=== PATIENT | female | born 1940 | race Caucasian/White ===

== ENCOUNTER → 2017-11-06 09:00 | Outpatient (CLI) | payer MEDICARE, SELFPAY ==
--- NOTE | 2017-11-06 | DI.MRI.S_ITS ---
PROCEDURE: MR LUMBAR SPINE WO CON INDICATIONS: LUMBAR SPINE RADICULOPATHY TECHNIQUE: Noncontrast sagittal T1 spin echo and T2 fast echo, sagittal STIR, axial T1 and T2 fast spin echo through the lumbar spine. In cases with scoliosis, additional coronal T2 fast spin echo may be performed. COMPARISON: [facility], MR, L-SPINE WITHOUT CONTRAST, 05/25/2015, 10:39. [facility], CR, XR LUMBAR SPINE 2 OR 3 VIEWS, 10/25/2017, 16:08. FINDINGS: Image quality: Excellent. Alignment and Curvature: 5 lumbar type vertebral bodies are present by plain film. There is loss of normal lumbar lordosis. There is mild kyphosis at L1. Bone Marrow: Marrow is of normal overall signal. No acute vertebral body compression fractures. Patient is status post T11-L2 fusion, with paired posterior rods and pedicle screws at T11, T12, and L2. No change in moderate chronic L1 wedging. Mild reactive signal within the endplates adjacent to the L3-L4, L4-L5, and L5-S1 intervertebral discs is present. Spinal Cord: Conus medullaris terminates at the upper L1 level. Visualized cord demonstrates normal signal and size. Paraspinous Soft Tissues: No paravertebral masses. T12-L1: There is mild retropulsion of the superior L1 level, as before, causing mild canal stenosis. No foraminal stenosis. L1-L2: Disc desiccation and diffuse disc bulge. Mild canal stenosis. No foraminal stenosis. No change. L2-L3: Mild disc desiccation and mild diffuse disc bulge. Mild bilateral facet hypertrophy. Mild canal stenosis. Mild foraminal stenosis bilaterally. No change. L3-L4: Moderate disc desiccation and diffuse disc bulge. Mild disc height loss. Moderate facet hypertrophy bilaterally. Mild canal stenosis. Mild foraminal stenosis bilaterally. No change. L4-L5: Moderate disc desiccation and diffuse disc bulge. Bilateral facet hypertrophy and ligamentum hypertrophy. Mild canal stenosis. Mild foraminal stenosis bilaterally. No change. L5-S1: Moderate disc desiccation and diffuse disc bulge. Mild facet hypertrophy bilaterally. Mild canal stenosis. Mild foraminal stenosis bilaterally. No change. IMPRESSION: 1. Postsurgical sequelae. 2. No change in chronic L1 compression fracture with mild chronic retropulsion, causing mild canal stenosis at the superior L1 level. 3. Multilevel degenerative disc and facet disease, causing mild multilevel canal and foraminal stenoses. No evidence of neural impingement. Dictated by: Sagar Johnston M.D. on 11/06/2017 at 11:47 Approved by: Sagar Johnston M.D. on 11/06/2017 at 11:52
== END ==
PROVIDERS: Family Provider Internal Medicine; PCP Internal Medicine; Visit Provider Orthopaedic Surgery Orthopaedic Surgery of the Spine
DX: M51.16 Intervertebral disc disorders with radiculopathy, lumbar region (principal); M48.061 Spinal stenosis, lumbar region without neurogenic claudication
CPT/HCPCS: 72148

== ENCOUNTER → 2018-08-08 14:25 | Outpatient (CLI) | payer MEDICARE, SELFPAY ==
[2018-08-08 15:01] LABS: Add Manual Diff / Slide Review NO; Basophils Absolute Auto 100 /uL (0-100); Eosinophils Absolute Auto 300 /uL (0-450); Eosinophils Percent Auto 2.9 % (2-4); Hematocrit 37.5 % (36-46); Hemoglobin 12.6 g/dL (12.0-16.0); Lymphocytes Absolute Auto 3200 /uL (1100-4500); Mean Corpuscular HGB Conc 33.7 % (30-36); Mean Corpuscular Hemoglobin 32.2 PG (26-34); Mean Corpuscular Volume 95.6 fL (80-100); Monocytes Absolute Auto 700 /uL (0-900); Monocytes Percent Auto 7.9 % (3-14); Neutrophils Absolute Auto 4700 /uL (1500-7000); Neutrophils Percent Auto 52.2 % (50-75); Platelet Count 239 X10^3/uL (150-400); Red Blood Cell Count 3.93 X10^6/uL (4.0-5.2); Red Cell Distribution Width 12.9 % (11.6-14.8)
[2018-08-08 16:00] LABS: Alanine Aminotransferase 22 IU/L (9-52); Albumin 4.5 g/dL (3.5-5.0); Albumin Globulin Ratio 1.8 (1.0-2.8); Alkaline Phosphatase 63 U/L (38-126); Aspartate Aminotransferase 32 IU/L (14-36); BUN Creatinine Ratio 37.1 (6-22); Bilirubin Total 0.2 mg/dL (0.2-1.3); Blood Urea Nitrogen 26 mg/dL (7-17); Calcium 9.3 mg/dL (8.4-10.2); Carbon Dioxide 21 mmol/L (22-32); Chloride 105 mmol/L (98-107); Cholesterol 185 mg/dL (140-199); Estimated Glomerular Filt Rate > 60.0 mL/min (>60); Globulin 2.5 g/dL (1.7-4.1); Glucose 121 mg/dL (80-110); HDL Cholesterol 54 mg/dL (40-60); HEMOLYSIS 20 (0-50); LDL Cholesterol Calculated 61 mg/dL (<100); Potassium 3.9 mmol/L (3.4-5.1); Sodium 137 mmol/L (137-145); Triglycerides 348 mg/dL (35-150)
== END ==
PROVIDERS: Family Provider Internal Medicine; PCP Internal Medicine; Visit Provider Internal Medicine
DX: E78.5 Hyperlipidemia, unspecified (principal); Z78.0 Asymptomatic menopausal state
CPT/HCPCS: 36415; 80053; 80061; 85025

== ENCOUNTER → 2018-12-17 15:51 | Outpatient (CLI) | payer MEDICARE, OTHER, SELFPAY ==
[2018-12-17 16:42] LABS: Creatine Kinase 61 U/L (30-135)
[2018-12-17 16:52] LABS: Troponin I < 0.012 ng/mL (0.01-0.034)
== END ==
PROVIDERS: PCP Internal Medicine; Visit Provider Hospitalist
DX: R07.9 Chest pain, unspecified (principal)
CPT/HCPCS: 36415; 82550; 84484

== ENCOUNTER → 2019-01-27 09:48 | Outpatient (CLI) | payer MEDICARE, OTHER, SELFPAY ==
--- NOTE | 2019-01-27 10:56 | PM.TREADMILL ---
Cardiac Stress Test Report Referral & Results Date Patient Seen: 01/27/19 Requesting provider: Shannan Tse Indication: Chest symptoms Rest ECG: Unremarkable Procedure Note: Today following both written and verbal informed consent, the patient was exercised according to a standard Fernando protocol. The patient exercised for a total of or minutes 8 seconds achieving a maximum heart rate of approximately 160 (lots of motion artifact). Patient's maximum systolic blood pressure was 190. This was an estimated 7.0 MET's. There is a tremendous amount of motion artifact related to patient's gown that almost completely obscured ECG while patient was active. Upon cessation of activity there was no obvious ST-T segment change. There is still lots of variability in her ST segment baseline but no [id number] consistency suggesting any ischemic change No dysrhythmia identified although certainly given the amount of artifact it would be extraordinarily difficult to see any subtle dysrhythmia Functional aerobic impairment rated about-10% on the sedentary scale or 10% better than average Impression: No evidence of ischemia. Given the amount of artifact seen I am not as confident in this result as I have might be otherwise. Clinical correlation suggested Please note: Actual ECG tracings can be found in the PACS system.
== END ==
PROVIDERS: PCP Internal Medicine; Visit Provider Internal Medicine
DX: R07.9 Chest pain, unspecified (principal)
CPT/HCPCS: 93016; 93017; 93018

== ENCOUNTER → 2019-02-03 11:50 | Outpatient (CLI) | payer MEDICARE, OTHER, SELFPAY ==
--- NOTE | 2019-02-03 11:53 | DI.RAD.S_ITS ---
PROCEDURE: XR CHEST 2V INDICATIONS: Chest pain TECHNIQUE: 2 views of the chest were acquired. COMPARISON: [facility], , CHEST 2 VIEW, 10/12/2009, 14:46. FINDINGS: Surgical changes and devices: None. Lungs and pleura: Lungs are clear. No pleural effusions or pneumothorax. Mediastinum: Mediastinal contours are normal. Heart size is normal. Bones and chest wall: No suspicious bony abnormalities. Spine fixation hardware. Soft tissues appear unremarkable. IMPRESSION: No acute cardiopulmonary abnormality. Dictated by: Roel Arteaga M.D. on 02/03/2019 at 12:49 Approved by: Roel Arteaga M.D. on 02/03/2019 at 12:51
== END ==
PROVIDERS: PCP Internal Medicine; Visit Provider Internal Medicine
DX: R07.9 Chest pain, unspecified (principal)
CPT/HCPCS: 71046

== ENCOUNTER → 2019-03-12 12:38 | Outpatient (CLI) | payer MEDICARE, OTHER, SELFPAY ==
--- NOTE | 2019-03-12 | DI.US.S_ITS ---
ULTRASOUND OF RIGHT BREAST: 03/12/2019 CLINICAL: Patient returns today to evaluate a focal asymmetry in the right breast. [facility] of the right breast was performed on the areas of interest. Scott scale images of the real-time examination were reviewed. There is a 0.4 cm oval cyst in the right breast at 1 o'clock middle depth. This oval cyst displays internal echoes and posterior acoustic enhancement. This correlates with mammography findings. IMPRESSION: PROBABLY BENIGN The 0.4 cm oval cyst in the right breast is consistent with complicated cyst and is probably benign. A follow-up mammogram and an ultrasound in 6 months is recommended to demonstrate stability. This exam was interpreted at Station ID: [id number]. Electronically Signed By: Betty Grissom M.D. lk/:03/12/2019 13:55:44 letter sent: Followup Recommended Ultrasound BI-RADS: 3 Probably benign
--- NOTE | 2019-03-12 12:40 | DI.US.S_ITS ---
ULTRASOUND OF LEFT BREAST: 03/12/2019 Comparison is made to exam dated: 03/12/2019 [facility]. Ultrasound of the left breast was performed on the area of interest. Scott scale images of the real-time examination were reviewed. IMPRESSION: NEGATIVE There is no sonographic evidence of malignancy. There is no mammographic or sonographic abnormality seen in the left breast to correspond with the pain in the upper outer quadrant, however, clinical followup is recommended. A 1 year screening mammogram is recommended. This exam was interpreted at Station ID: [id number]. Electronically Signed By: Betty acosta/sharda:03/12/2019 13:56:26 letter sent: Clinical Evaluation Ultrasound BI-RADS: 1 Negative
--- NOTE | 2019-03-12 12:40 | DI.MG.S_ITS ---
BILATERAL DIGITAL DIAGNOSTIC MAMMOGRAM 3D/2D: 03/12/2019 CLINICAL: Left breast pain Baseline exam. No prior exams were available for comparison. The tissue of both breasts is predominantly fatty. There is a 0.3 cm oval focal asymmetry in the right breast at 1 o'clock middle depth. No other significant masses, calcifications, or other findings are seen in either breast. IMPRESSION: INCOMPLETE: NEEDS ADDITIONAL IMAGING EVALUATION The 0.3 cm oval focal asymmetry in the right breast is indeterminate. There is no mammographic abnormality seen in the left breast to correspond with the pain. A targeted ultrasound of the bilateral breasts is recommended and will be performed immediately following this exam. This exam was interpreted at Station ID: [id number]. NOTE: For mammograms, a report in lay terms will be sent to the patient. Approximately 15% of breast malignancies will not be visualized mammographically. In the management of a palpable breast mass, a negative mammogram must not discourage biopsy of a clinically suspicious lesion. Electronically Signed By: Betty Grissom M.D. lk/:03/12/2019 13:25:15 ACR BI-RADS Category 0: Incomplete [id number]
== END ==
PROVIDERS: PCP Internal Medicine; Visit Provider Internal Medicine
DX: R92.8 Other abnormal and inconclusive findings on diagnostic imaging of breast (principal); N64.4 Mastodynia; N60.01 Solitary cyst of right breast
CPT/HCPCS: 76642; 77066; G0279

== ENCOUNTER → 2019-03-27 15:43 | Outpatient (ROUT) | payer MEDICARE, OTHER, SELFPAY | PROVIDERS: PCP Internal Medicine; Visit Provider Podiatrist | DX: B35.1 Tinea unguium (principal) | CPT/HCPCS: 87102; 87220 ==

== ENCOUNTER → 2019-05-05 12:18 | Outpatient (CLI) | payer MEDICARE, OTHER, SELFPAY | PROVIDERS: PCP Internal Medicine; Visit Provider Nurse Practitioner | DX: N39.0 Urinary tract infection, site not specified (principal) | CPT/HCPCS: 87077; 87086; 87186 ==

== ENCOUNTER 2019-05-13 12:02 | Day surgery (SDC) | payer MEDICARE, OTHER, SELFPAY ==
[2019-05-08 15:48] VITALS: BMI 27.6
--- NOTE | 2019-05-13 | DI.MG.S_ITS ---
UNILATERAL RIGHT DIGITAL DIAGNOSTIC MAMMOGRAM: 05/13/2019 CLINICAL: Post wire localization. Right breast mass. Comparison is made to exams dated: 03/12/2019 ultrasound and 03/12/2019 mammogram - [facility]. The tissue of right breast is predominantly fatty. There is a localization wire in the appropriate position in the right breast at 1 o'clock middle depth. IMPRESSION: POST PROCEDURE MAMMOGRAM FOR MARKER PLACEMENT Successful wire localization This exam was interpreted at Station ID: [id number]. NOTE: For mammograms, a report in lay terms will be sent to the patient. Approximately 15% of breast malignancies will not be visualized mammographically. In the management of a palpable breast mass, a negative mammogram must not discourage biopsy of a clinically suspicious lesion. Electronically Signed By: Hudson he/:05/15/2019 15:23:24 ACR BI-RADS Category Post-procedure mammogram for marker placement
--- NOTE | 2019-05-13 | PATH_ITS ---
[facility] Accession Number: [id number] . 01 Material submitted: . breast - RIGHT BREAST MASS . 01 Clinical history: . SHORT STITCH SUPERIOR, LONG STITCH LATERAL . 01 Diagnosis: Right Breast 'Mass', Partial Mastectomy: Breast parenchyma with fibrocystic change including cystic apocrine metaplasia, focal usual ductal hyperplasia, focal columnar cell change, mild cystic duct dilatation, microcysts, and mild stromal fibrosis. Focal microcalcifications are present. Negative for atypia, carcinoma in situ and malignancy. [facility] 05/20/2019 0139 Local . 01 Comment: Biopsy site changes are not identified; however, sections surrounding the end of the localization wire (Blocks A6 through A9) are each examined with additional deeper H/E levels. The specimen is entirely submitted. . 01 Electronically signed: . Roberta Jack MD, Pathologist NPI- [id number] . 01 Gross description: . Received: In formalin, labeled right breast mass-short stitch superior, long stitch lateral. Specimen: Right partial mastectomy. Weight: 15 g. Measurement: Up to 1.5 cm anterior to posterior, 7.5 cm medial to lateral, and up to 3.2 cm superior to inferior. Skin Ellipse: Absent. Wire: A localization wire is present an enters the central inferoanterior aspect and ends within the specimen. Margins: Oriented by surgeon with short superior suture, long lateral suture, and inked as follows: posterior=black; anterior=purple; superior=blue; inferior=green; medial=yellow; lateral=orange. Sliced: Lateral to medial into 14 slices. Lesions: The localization wire ends within slices #6 and #7. The tissue surrounding the wire tip (0.3 x 0.2 cm) is de los santos-pink. No obvious nodules, masses, or lesions are identified. Biopsy Site: Present within slice #8. A metal clip is identified within the posterior margin. Distance to Margins: The area that contains the tip of the localization wire is 0.7 cm from the anterior margin, 0.8 cm from the posterior margin, 2.2 cm from the superior margin, 0.5 cm from the inferior margin, 2.5 cm from the lateral margin, and 3.7 cm from the medial resection margin. Other: The remaining cut surfaces consist of yellow lobulated unremarkable adipose tissue. Fixation Time: The specimen was placed in formalin on 05/13/2019, with no time given. The approximate total fixation time in formalin is calculated to be 36 hours 30 minutes. Sections: A1: Slice 1, lateral end of specimen, perpendicular. A2: Slice 2. A3: Slice 3. A4: Slice 4. A5: Slice 5, slice directly lateral to the tissue involving the localization wire. A6: Slice 6, slice involving the tip of the localization wire. A7: Slice 7, tissue involving the tip of the localization wire. A8: Slice 8, tissue directly medial to the tissue involving the tip of the localization wire, location of the biopsy marker within the posterior margin. A9: Slice 9. A10: Slice 10. A11: Slice 11. A12: Slice 12. A13: Slice 13. A14-A15: Slice 14, medial end of specimen, perpendicular. Specimen is entirely submitted. ([id number]) /[facility] 05/15/2019 1450 Local . 01 Pathologist provided ICD-10: N60.99 . 01 CPT . 078799 Performed at: [address] [address], [place], [place] [id number] MD Luis Eduardo Marquez MD Phone: [phone]
--- NOTE | 2019-05-13 | DI.US.S_ITS ---
ULTRASOUND GUIDED NEEDLE LOCALIZATION RIGHT BREAST: 05/13/2019 CLINICAL: Rt breast wire loc. 1:00 4 cmfn. Correlation is made to exams dated: 05/13/2019 mammogram, 03/12/2019 ultrasound, and 03/12/2019 mammogram - [facility]. A needle localization using ultrasound guidance was performed for the round lesion located in the right breast at 1 o'clock posterior depth. The skin was prepped in the usual manner. Local anesthetic was administered to the access site. A needle was inserted into the targeted area under ultrasound guidance. Post placement imaging demonstrates the tip traverses the targeted area. IMPRESSION: NEEDLE LOCALIZATION Needle localization for the lesion in the right breast at 1 o'clock posterior depth was successful. A specimen radiograph is recommended. This exam was interpreted at Station ID: [id number]. Hudosn he/:05/15/2019 15:13:43
--- NOTE | 2019-05-13 | DI.MG.S_ITS ---
SPECIMEN RIGHT BREAST: 05/13/2019 CLINICAL: Right breast specimen. Correlation is made to exams dated: 05/13/2019 localization, 05/13/2019 mammogram, and 03/12/2019 mammogram - [facility]. A surgical specimen was imaged for the lesion located in the right breast at 1 o'clock posterior depth. IMPRESSION: SPECIMEN The imaged specimen includes the distal portion of the localization wire. Waiting for pathology results. A final report will be issued when these become available. This exam was interpreted at Station ID: [id number]. Hudson he/:05/15/2019 15:21:33
[2019-05-13 12:20] VITALS: BP 149/74; PULSE 82; RESP 18; TEMP 36.3; O2SAT 97; BMI 26.3
[2019-05-13] MEDS: GABAPENTIN 300 MG CAPSULE PO (14:14)
[2019-05-13] MEDS: LACTATED RINGERS 1,000 ML 42 ML IV (14:58)
--- NOTE | 2019-05-13 15:12 | PM.HP.1 ---
History of Present Illness History of Present Illness Date Patient Seen: 05/13/19 Time Patient Seen: 15:15 Chief complaint: [id number] Narrative: 05/13-there have been no interval changes in her health since the H&P dated 04/09. She underwent needle wire localization today of right breast mass. Please refer the HP for further detail from March. 04/09/19 79-year-old woman with an incidentally discovered right breast cyst. She was having some left breast discomfort initially which led to workup mammogram and ultrasound which demonstrated no left breast abnormality and her left breast pain resolved after some orthopedic intervention of shoulder injection. However on the mammogram there was a 3mm indeterminate nodule that followup ultrasound demonstrates as a complex cyst likely benign. Patient is very concerned about this. She is insistent that it be removed as she is very concerned that it could potentially be cancer. I explained that it is likely benign and the recommendation that imaging be repeated in 6 months but she is insistent it be removed. Patient History Medical History Fusion of lumbar spine (Acute) Hyperlipidemia (Chronic) Rheumatoid arthritis (Chronic) Vitamin D deficiency (Chronic) Surgical History Anesthesia (Resolved) S/P total abdominal hysterectomy and bilateral salpingo-oophorectomy (~1991) Status post appendectomy (~1951) Status post cholecystectomy Status post tonsillectomy and adenoidectomy (~1963) Family & Social History Family History Brother Heart disease Social History: household members spouse Tobacco & Substance use: Smoking Status Never smoker alcohol intake current alcohol intake frequency holiday/special occasion Meds Home Medications and Allergies Home Medications Medication Instructions Recorded Confirmed Type conjugated estrogens 0.625 mg 0.625 mg PO QDAY #90 tab 08/13/18 05/05/19 Rx tablet simvastatin 20 mg tablet 20 mg PO BEDTIME #90 tab 08/13/18 05/05/19 Rx aspirin 81 mg tablet,delayed 81 mg PO DAILY 12/17/18 05/05/19 History release cholecalciferol (vitamin D3) 1,000 1,000 unit PO DAILY 12/17/18 05/05/19 History unit capsule lisinopril 5 mg tablet 5 mg PO DAILY #30 tab 12/17/18 05/05/19 Rx nitroglycerin 0.3 mg sublingual 0.3 mg SL Q5-15M PRN #10 tab 12/17/18 05/05/19 Rx tablet doxycycline hyclate 100 mg PO BID 05/08/19 05/08/19 History sulfamethoxazole 800 1 tab PO BID 7 Days #14 tab 05/10/19 Rx mg-trimethoprim 160 mg tablet Allergies Allergy/AdvReac Type Severity Reaction Status Date / Time Penicillins Allergy Unknown Verified 05/12/19 16:32 Sulfa (Sulfonamide AdvReac Intermediate Nausea/Vomi Verified 05/12/19 16:32 Antibiotics) ting trimethoprim AdvReac Intermediate Nausea/Vomi Verified 05/12/19 16:32 ting Review of Systems Review of Systems Narrative: A 10 point review of systems is negative except as noted in the HPI Exam Vital Signs (past 8 hours): - 05/13/19 12:20 Temperature 97.4 F L Pulse Rate 82 Respiratory Rate 18 Blood Pressure 149/74 H Pulse Oximetry 97 Oxygen Delivery Method Room Air Narrative Exam Narrative: General-no acute distress, well nourished HEENT-moist mucous membranes, no scleral icterus Neck-supple, no lymphadenopathy Chest- non labored respirations, clear to auscultation bilaterally Cardiac-regular rate no peripheral edema Abdomen-soft, nontender, non distended Extremities-warm, well perfused Neurological-alert and oriented, no focal deficits Assessment & Plan Assessment and plan (1) Abnormality of right breast on screening mammogram: Current visit: No Status: Acute Assessment & Plan narrative: 79-year-old woman with a right breast abnormality. Mammogram demonstrates a 3 mm indeterminate nodule which ultrasound characterizes is likely a complex cyst, likely benign. She wants excision for diagnostic purpose. We discussed risks of the operation including bleeding infection need for further operation preop questions have been answered and she is in agreement this plan.
[2019-05-13] MEDS: CLINDAMYCIN 900 MG/50 ML PIGGYBACK 50 MG IV (15:27)
--- NOTE | 2019-05-13 15:49 | SUR.OPER ---
Supine on padded OR bed, head on pillow, arms secured on padded arm boards at <90 degrees abduction, legs uncrossed, safety belt at thigh.
[2019-05-13] MEDS: BUPIVACAINE 0.25% (PF) VIAL 30 ML INJ (16:13)
[2019-05-13 16:24] VITALS: BP 151/64; PULSE 75; RESP 16; TEMP 36.6; O2SAT 98
--- NOTE | 2019-05-13 16:35 | PM.OP.1 ---
Operative Date/Time/Diagnoses Date of procedure: 05/13/19 Time of procedure: 16:35 Pre-op diagnosis: right breast radiographic abnormality Post-op diagnosis: same Procedure & Clinicians Procedure: Right needle-guided lumpectomy Same procedure as scheduled: Yes Indications: This is a 79-year-old female who was found have a 3 mm radiographic abnormality in the right breast most consistent with a cyst. She is insistent that she wants it surgically excise for diagnostic purpose. Surgeon: Jorge Luis Godwin Anesthesia Type: Local Operative Notes Findings: Most consistent with a right breast cyst. Radiographically the wire is within the excised tissue Specimen(s): other Prosthetic devices, grafts, tissues, transplants, or devices: Right lumpectomy Estimated Blood Loss (mL): 5 Procedure in detail: The patient underwent needle localized prior to the operation. They were brought to the operating room and placed supine on the table. Bilateral lower extremity compression devices were applied. There were prepped and draped in sterile fashion. Time-out was performed to ensure the correct patient procedure necessary equipment within the operating room. A curvilinear incision on the lateral aspect of the right areola was made and subcutaneous tissues were divided. The localizing wire was identified and then brought back within the incision. The end of the wire was within a right cystic appearing structure surrounded by normal breast parenchyma.. The mass was excised with the wire. Specimen was marked short stitch superior long stitch lateral. Imaging demonstrated that the specimen contained the wire and the associated clip. Subcutaneous tissues were reapproximated with 3 0 Vicryl sutures skin closed with Monocryl followed by application of Dermabond, 0.25% bupivacaine was infiltrated into the skin. Complications: none Post-operative Condition: stable Disposition: same day surgery
== END 2019-05-13 16:50 | disposition home or self-care (01) ==
PROVIDERS: PCP Internal Medicine; Visit Provider Surgery
PROC: (CPT 19301; principal; 2019-05-13 14:30)
DX: N60.91 Unspecified benign mammary dysplasia of right breast (principal); E78.5 Hyperlipidemia, unspecified; M06.9 Rheumatoid arthritis, unspecified; E55.9 Vitamin D deficiency, unspecified
CPT/HCPCS: 19301; 19285; 76098; 77065

== ENCOUNTER → 2019-06-10 14:40 | Outpatient (CLI) | payer MEDICARE, OTHER, SELFPAY ==
[2019-06-10 18:01] LABS: Appearance Urine UA SL CLOUDY; Bilirubin Urine UA NEGATIVE (NEGATIVE); Color Urine UA YELLOW; Glucose Urine UA NEGATIVE (Negative); Ketones Urine UA NEGATIVE (NEGATIVE); Leukocyte Esterase Urine UA NEGATIVE (NEGATIVE); Nitrite Urine UA NEGATIVE (Negative); Occult Blood Urine UA NEGATIVE (Negative); Protein Urine UA NEGATIVE (Negative); Urobilinogen Urine UA 0.2 E.U./dL (0.2)
[2019-06-10 18:20] LABS: Bacteria Urine Few (2-10); Culture Indicated Urine Cult Not Indicated; RBC Urine 0-1/HPF (0-5/HPF); Squamous Epithelial Cell Urine 10-30 /HPF (0-5/HPF); WBC Urine 0-1/HPF (0-5/HPF)
== END ==
PROVIDERS: PCP Internal Medicine; Referring Provider Internal Medicine; Visit Provider Internal Medicine
DX: R30.0 Dysuria (principal)
CPT/HCPCS: 81001

== ENCOUNTER → 2020-06-23 09:58 | Outpatient (CLI) | payer MEDICARE, OTHER, SELFPAY ==
[2020-06-23 11:45] LABS: Alanine Aminotransferase 23 IU/L (<35); Albumin 4.2 g/dL (3.5-5.0); Albumin Globulin Ratio 1.4 (1.0-2.8); Alkaline Phosphatase 61 U/L (38-126); Aspartate Aminotransferase 32 IU/L (14-36); BUN Creatinine Ratio 27.7 (6-22); Bilirubin Total 0.4 mg/dL (0.2-1.3); Blood Urea Nitrogen 18 mg/dL (7-17); Calcium 9.1 mg/dL (8.4-10.2); Carbon Dioxide 24 mmol/L (22-32); Chloride 109 mmol/L (98-107); Cholesterol 250 mg/dL (140-199); Estimated Glomerular Filt Rate > 60.0 mL/min (>60); Globulin 2.9 g/dL (1.7-4.1); Glucose 107 mg/dL (80-110); HDL Cholesterol 55 mg/dL (40-60); HEMOLYSIS < 15 (0-50); LDL Cholesterol Calculated 149 mg/dL (<100); Potassium 3.9 mmol/L (3.4-5.1); Sodium 138 mmol/L (137-145); Total Protein 7.1 g/dL (6.3-8.2); Triglycerides 231 mg/dL (35-150)
== END ==
PROVIDERS: PCP Internal Medicine; Referring Provider Internal Medicine; Visit Provider Internal Medicine
DX: E78.5 Hyperlipidemia, unspecified (principal); Z78.0 Asymptomatic menopausal state
CPT/HCPCS: 36415; 80053; 80061

== ENCOUNTER → 2020-08-23 14:07 | Outpatient (CLI) | payer MEDICARE, OTHER, SELFPAY | PROVIDERS: PCP Family Medicine; Referring Provider Family Medicine; Visit Provider Family Medicine | DX: Z78.0 Asymptomatic menopausal state (principal) | CPT/HCPCS: 77080 ==

== ENCOUNTER → 2020-10-15 15:14 | Outpatient (CLI) | payer MEDICARE, OTHER, SELFPAY ==
[2020-10-15 17:49] LABS: C-Reactive Protein Quant 1.4 mg/dL (<1.0); Uric Acid 4.1 mg/dL (2.5-6.2)
[2020-10-15 17:51] LABS: Rheumatoid Factor < 8.6 IU/mL (<12.0)
[2020-10-15 17:54] LABS: Erythrocyte Sedimentation Rate 21 MM/HR (0-20)
[2020-10-18 15:35] LABS: ANA Screen, IFA Negative (.)
== END ==
PROVIDERS: PCP Family Medicine; Referring Provider Orthopaedic Surgery; Visit Provider Orthopaedic Surgery
DX: M79.641 Pain in right hand (principal)
CPT/HCPCS: 36415; 84550; 85651; 86038; 86140; 86430

== ENCOUNTER → 2021-01-10 12:19 | Outpatient (CLI) | payer MEDICARE, OTHER, SELFPAY | PROVIDERS: PCP Family Medicine; Visit Provider Nurse Practitioner Family | DX: R30.9 Painful micturition, unspecified (principal) | CPT/HCPCS: 87086; 87210 ==

== ENCOUNTER → 2021-03-14 12:29 | Outpatient (CLI) | payer MEDICARE, OTHER, SELFPAY ==
--- NOTE | 2021-03-14 12:31 | DI.MRI.S_ITS ---
PROCEDURE: MR HEAD/BRAIN WO CON INDICATIONS: new severe headaches TECHNIQUE: Non-contrast axial T1 spin echo, axial T2 fast spin echo, sagittal and axial FLAIR, coronal T2 fast spin echo, axial gradient echo, axial diffusion and ADC through the brain. COMPARISON: None. FINDINGS: Image quality: Excellent. CSF spaces: Ventricles appear symmetric in size and shape. Basal cisterns are patent. No extra-axial fluid collections. Brain: No intracranial bleeds or mass effects. There is cerebral volume loss for age. There are periventricular and deep white matter chronic small vessel ischemic changes. Brainstem appears normal. Diffusion-weighted images show no acute ischemic insults. No chronic ischemic insults. Normal intravascular flow voids are present. Skull and face: Calvarial bone marrow is normal in signal. Orbits are normal. Sinuses: Sinuses and mastoids are clear. IMPRESSION: Unremarkable intracranial study for age, without an imaging explanation found for the patient's presenting history of headache. No acute intracranial process is seen. Note is made of age-appropriate brain parenchymal volume loss and chronic small vessel ischemic changes. No findings of acute or subacute infarction can be seen. Dictated by: Andre Mueller M.D. on 03/14/2021 at 12:39 Approved by: Andre Mueller M.D. on 03/14/2021 at 12:40
== END ==
PROVIDERS: PCP Family Medicine; Referring Provider Family Medicine; Visit Provider Family Medicine
DX: R51.9 Headache, unspecified (principal)
CPT/HCPCS: 70551

== ENCOUNTER → 2021-04-12 15:57 | Outpatient (CLI) | payer MEDICARE, OTHER, SELFPAY ==
--- NOTE | 2021-04-12 16:00 | DI.MG.S_ITS ---
BILATERAL DIGITAL SCREENING MAMMOGRAM 3D/2D WITH CAD: 04/12/2021 CLINICAL: Routine screening. Comparison is made to exams dated: 05/13/2019 mammogram, 03/12/2019 ultrasound, and 03/12/2019 mammogram - [facility]. The tissue of both breasts is heterogeneously dense. This may lower the sensitivity of mammography. Current study was also evaluated with a Computer Aided Detection (CAD) system. There is an oval equal density focal asymmetry with an indistinct and circumscribed margin in the right breast at 7 o'clock middle depth. No other significant masses, calcifications, or other findings are seen in either breast. IMPRESSION: INCOMPLETE: NEEDS ADDITIONAL IMAGING EVALUATION The oval equal density focal asymmetry in the right breast is indeterminate. Mediolateral and spot compression views as well as additional views with possible ultrasound are recommended. This exam was interpreted at Station ID: [id number]. NOTE: For mammograms, a report in lay terms will be sent to the patient. Approximately 15% of breast malignancies will not be visualized mammographically. In the management of a palpable breast mass, a negative mammogram must not discourage biopsy of a clinically suspicious lesion. Electronically Signed By: Luis Eduardo rojas/sharda:04/12/2021 16:56:11 letter sent: Additional Imaging Needed ACR BI-RADS Category 0: Incomplete [id number]
== END ==
PROVIDERS: PCP Family Medicine; Referring Provider Family Medicine; Visit Provider Family Medicine
DX: Z12.31 Encounter for screening mammogram for malignant neoplasm of breast (principal)
CPT/HCPCS: 77063; 77067

== ENCOUNTER → 2021-05-09 12:21 | Outpatient (CLI) | payer MEDICARE, OTHER, SELFPAY ==
--- NOTE | 2021-05-09 12:24 | DI.MG.S_ITS ---
UNILATERAL RIGHT DIGITAL DIAGNOSTIC MAMMOGRAM 3D/2D WITH ADDITIONAL VIEWS: 05/09/2021 CLINICAL: Additional evaluation requested from prior study. Comparison is made to exams dated: 04/12/2021 mammogram, 05/13/2019 specimen, and 05/13/2019 [facility]. The tissue of right breast is heterogeneously dense. This may lower the sensitivity of mammography. The benign oval equal density focal asymmetry with an indistinct and circumscribed margin in the right breast at 7 o'clock middle depth is no longer seen. This is not seen in additional views. No other significant masses or calcifications are seen in the breast. IMPRESSION: BENIGN There is no mammographic evidence of malignancy. A 1 year screening mammogram is recommended. This exam was interpreted at Station ID: [id number]. NOTE: For mammograms, a report in lay terms will be sent to the patient. Approximately 15% of breast malignancies will not be visualized mammographically. In the management of a palpable breast mass, a negative mammogram must not discourage biopsy of a clinically suspicious lesion. Electronically Signed By: Swapnil Caballero M.D., jr/sharda:05/09/2021 13:18:40 letter sent: Normal Exam ACR BI-RADS Category 2: Benign Finding(s) 3342F
== END ==
PROVIDERS: PCP Family Medicine; Referring Provider Family Medicine; Visit Provider Family Medicine
DX: R92.8 Other abnormal and inconclusive findings on diagnostic imaging of breast (principal)
CPT/HCPCS: 77065; G0279

== ENCOUNTER → 2021-05-19 11:27 | Outpatient (CLI) | payer MEDICARE, OTHER, SELFPAY ==
[2021-05-19 12:01] LABS: Estimated Glomerular Filt Rate > 60.0 mL/min (>60)
--- NOTE | 2021-05-19 12:12 | DI.CT.S_ITS ---
PROCEDURE: CT ANGIO HEAD INDICATIONS: LEFT PARIETAL HEADACHE TECHNIQUE: Precontrast 4.5 mm thick angled axial sections acquired from the foramen magnum to the vertex. After the administration of intravenous contrast, 1 mm thick sections acquired through the [place] of [place]. Postcontrast 4.5 mm thick sections then re-acquired from the foramen magnum to the vertex. 10 mm thick mnozavv-elviputkh-xdhgieznbd (MIP) reformats were acquired of the central intracranial vasculature. For radiation dose reduction, the following was used: automated exposure control, adjustment of mA and/or kV according to patient size. COMPARISON: None. FINDINGS: Image quality: Excellent. Anterior circulation: Intracranial internal carotid arteries are normal in size and flow. The flow within the paired anterior cerebral arteries is normal and symmetric. The flow within the middle cerebral arteries is normal and symmetric. The anterior communicating artery is seen. No aneurysms are seen. Posterior circulation: Visualized portions of the vertebral arteries demonstrate normal caliber, and join to form a normal appearing basilar artery. Flow within the posterior cerebral arteries is normal and symmetric. No aneurysms are seen. CSF spaces: Ventricles are normal in size and shape. Basal cisterns are patent. No extra-axial fluid collections. Brain: No midline shift. No intracranial bleeds or masses. Scott-white matter interface appears intact. Moderate cerebral and cerebellar volume loss with multifocal white matter chronic ischemic change noted. Skull and face: Calvarium and facial bones appear intact, without suspicious lesions. Sinuses: Visualized sinuses and mastoids are clear. IMPRESSION: Unremarkable CT angiogram of the brain without large vessel occlusion, aneurysm or vascular malformation. Mild atrophy and white matter chronic ischemic change without acute hemorrhage or mass effect. Approved by: Joshua Bradley M.D. on 05/19/2021 at 17:21
== END ==
PROVIDERS: PCP Family Medicine; Referring Provider Psychiatry & Neurology Neurology; Visit Provider Psychiatry & Neurology Neurology
DX: G44.89 Other headache syndrome (principal); Z13.9 Encounter for screening, unspecified
CPT/HCPCS: 36415; 70496; 82565; Q9967

== ENCOUNTER → 2021-08-23 12:54 | Outpatient (CLI) | payer MEDICARE, OTHER, SELFPAY ==
[2021-08-23 13:32] LABS: Add Manual Diff / Slide Review NO; Basophils Absolute Auto 100 /uL (0-100); Basophils Percent Auto 0.8 % (0-2); Eosinophils Absolute Auto 200 /uL (0-450); Eosinophils Percent Auto 2.9 % (2-4); Hematocrit 36.1 % (36-46); Hemoglobin 12.4 g/dL (12.0-16.0); Lymphocytes Absolute Auto 2900 /uL (1100-4500); Lymphocytes Percent Auto 37.8 % (25-40); Mean Corpuscular HGB Conc 34.4 % (30-36); Mean Corpuscular Hemoglobin 32.4 PG (26-34); Mean Corpuscular Volume 94.1 fL (80-100); Monocytes Absolute Auto 500 /uL (0-900); Monocytes Percent Auto 6.7 % (3-14); Neutrophils Absolute Auto 4000 /uL (1500-7000); Neutrophils Percent Auto 51.8 % (50-75); Platelet Count 242 X10^3/uL (150-400); Red Blood Cell Count 3.84 X10^6/uL (4.0-5.2); Red Cell Distribution Width 12.7 % (11.6-14.8); White Blood Cell Count 7.7 X10^3/uL (4.5-11.0)
[2021-08-23 14:20] LABS: Alanine Aminotransferase 17 IU/L (<35); Albumin 4.5 g/dL (3.5-5.0); Albumin Globulin Ratio 1.4 (1.0-2.8); Alkaline Phosphatase 55 U/L (38-126); Aspartate Aminotransferase 28 IU/L (14-36); Bilirubin Total 0.5 mg/dL (0.2-1.3); Blood Urea Nitrogen 20 mg/dL (7-17); Calcium 9.4 mg/dL (8.4-10.2); Carbon Dioxide 25 mmol/L (22-32); Chloride 107 mmol/L (98-107); Cholesterol 258 mg/dL (140-199); Estimated Glomerular Filt Rate > 60 mL/min (>60); Globulin 3.2 g/dL (1.7-4.1); Glucose 109 mg/dL (80-110); HDL Cholesterol 64 mg/dL (40-60); HEMOLYSIS < 15 (0-50); LDL Cholesterol Calculated 150 mg/dL (<100); Potassium 4.5 mmol/L (3.4-5.1); Sodium 141 mmol/L (137-145); Total Protein 7.7 g/dL (6.3-8.2); Triglycerides 222 mg/dL (35-150)
== END ==
PROVIDERS: PCP Family Medicine; Referring Provider Family Medicine; Visit Provider Family Medicine
DX: E78.2 Mixed hyperlipidemia (principal); M06.9 Rheumatoid arthritis, unspecified
CPT/HCPCS: 36415; 80053; 80061; 85025

== ENCOUNTER → 2021-10-27 10:30 | Outpatient (CLI) | payer MEDICARE, OTHER, SELFPAY ==
--- NOTE | 2021-10-27 | DI.MRI.S_ITS ---
PROCEDURE: MR LUMBAR SPINE WO CON INDICATIONS: SPINAL STENOSIS TECHNIQUE: Noncontrast sagittal T1 spin echo and T2 fast echo, sagittal STIR, and T2 fast spin echo through the lumbar spine. In cases with scoliosis, additional coronal T2 fast spin echo may be performed. COMPARISON: [facility], MR, MR LUMBAR SPINE WO CON, 11/06/2017, 9:20. FINDINGS: Image quality: Excellent. Alignment and Curvature: Posterior fixation from T11-L2 is redemonstrated. As before, a severe compression deformity is present at L1 with retropulsion of the vertebral body and focal kyphosis. Findings are similar in extent to the comparison lumbar spine MRI dated November 06, 2017. Bone Marrow: Marrow is of normal overall signal. No acute vertebral body compression fractures. Spinal Cord: Conus medullaris terminates at the L1 level. Visualized cord demonstrates normal signal and size. Paraspinous Soft Tissues: No paravertebral masses. T12-L1: Partial fusion of the disc interspace. No canal stenosis. Mild bilateral foraminal narrowing. Findings are unchanged from the prior study. L1-L2: Mild disc desiccation. Broad-based disc bulge. No canal stenosis. Mild bilateral neural foraminal narrowing. L2-L3: Mild disc bulge. Mild facet and ligamentum flavum hypertrophy. Mild bilateral foraminal stenosis. No canal stenosis. No interval change. L3-L4: Moderate disc desiccation and height loss. Broad-based disc bulge. Moderate facet and ligamentum flavum hypertrophy. No canal stenosis. Mild bilateral foraminal stenosis. No interval change. L4-L5: Mild disc desiccation and height loss. Mild facet and ligamentum flavum hypertrophy. No canal stenosis. Mild right and moderate left neural foraminal stenosis. There is a slight increase in the degree of left neural foraminal narrowing when compared with the 2018 study. L5-S1: No canal stenosis or foraminal narrowing. IMPRESSION: 1. Overall stable findings when compared with the prior MRI dated November 06, 2017. There is a slight increase in the degree of left L4-5 foraminal stenosis when compared with the prior study. No other interval change. Dictated by: Betty Grissom M.D. on 10/27/2021 at 12:05 Approved by: Betty Grissom M.D. on 10/27/2021 at 12:10
== END ==
PROVIDERS: PCP Family Medicine; Referring Provider Orthopaedic Surgery Orthopaedic Surgery of the Spine; Visit Provider Orthopaedic Surgery Orthopaedic Surgery of the Spine
DX: M48.061 Spinal stenosis, lumbar region without neurogenic claudication (principal)
CPT/HCPCS: 72148

== ENCOUNTER → 2022-05-09 12:56 | Outpatient (CLI) | payer MEDICARE, OTHER, SELFPAY ==
--- NOTE | 2022-05-09 12:59 | DI.MG.S_ITS ---
BILATERAL DIGITAL SCREENING MAMMOGRAM 3D/2D WITH CAD: 05/09/2022 CLINICAL: Routine screening. Comparison is made to exams dated: 04/12/2021 mammogram and 03/12/2019 mammogram - [facility]. Both breasts are heterogeneously dense, which may obscure small masses (category c / 51-75% glandular tissue). Current study was also evaluated with a Computer Aided Detection (CAD) system. No significant masses, calcifications, or other findings are seen in either breast. There has been no significant interval change. IMPRESSION: NEGATIVE There is no mammographic evidence of malignancy. A 1 year screening mammogram is recommended. Based on the Tyrer Cuzick model (a risk assessment model) the patient's lifetime risk is 3.1% and her 10 year risk is 0.0%. According to the ACR, ACS, and NCCN guidelines, an annual breast MRI exam along with mammogram is recommended if the patient's lifetime risk is 20% or greater. This exam was interpreted at Station ID: [id number]. NOTE: For mammograms, a report in lay terms will be sent to the patient. Approximately 15% of breast malignancies will not be visualized mammographically. In the management of a palpable breast mass, a negative mammogram must not discourage biopsy of a clinically suspicious lesion. Electronically Signed By: Tom herman/sharda:05/09/2022 17:47:53 letter sent: Normal Exam ACR BI-RADS Category 1: Negative 3341F
== END ==
PROVIDERS: PCP Family Medicine; Referring Provider Family Medicine; Visit Provider Family Medicine
DX: Z12.31 Encounter for screening mammogram for malignant neoplasm of breast (principal)
CPT/HCPCS: 77063; 77067

== ENCOUNTER → 2022-09-12 12:59 | Outpatient (CLI) | payer MEDICARE, OTHER, SELFPAY ==
[2022-09-12 13:37] LABS: Add Manual Diff / Slide Review NO; Basophils Absolute Auto 100 /uL (0-100); Basophils Percent Auto 0.7 % (0-2); Eosinophils Absolute Auto 200 /uL (0-450); Hematocrit 35.2 % (36-46); Lymphocytes Absolute Auto 3400 /uL (1100-4500); Lymphocytes Percent Auto 39.6 % (25-40); Mean Corpuscular HGB Conc 34.1 % (30-36); Mean Corpuscular Hemoglobin 32.8 PG (26-34); Mean Corpuscular Volume 96.1 fL (80-100); Monocytes Absolute Auto 600 /uL (0-900); Monocytes Percent Auto 7.5 % (3-14); Neutrophils Absolute Auto 4300 /uL (1500-7000); Neutrophils Percent Auto 50.2 % (50-75); Platelet Count 235 X10^3/uL (150-400); Red Blood Cell Count 3.66 X10^6/uL (4.0-5.2); Red Cell Distribution Width 12.6 % (11.6-14.8); White Blood Cell Count 8.5 X10^3/uL (4.5-11.0)
[2022-09-12 14:11] LABS: Alanine Aminotransferase 22 IU/L (<35); Albumin 4.2 g/dL (3.5-5.0); Albumin Globulin Ratio 1.4 (1.0-2.8); Alkaline Phosphatase 61 U/L (38-126); Aspartate Aminotransferase 28 IU/L (14-36); BUN Creatinine Ratio 30.9 (6-22); Bilirubin Total 0.5 mg/dL (0.2-1.3); Blood Urea Nitrogen 21 mg/dL (7-17); Carbon Dioxide 26 mmol/L (22-32); Chloride 104 mmol/L (98-107); Cholesterol 170 mg/dL (140-199); Estimated Glomerular Filt Rate > 60 mL/min (>60); Glucose 104 mg/dL (80-110); HDL Cholesterol 69 mg/dL (40-60); HEMOLYSIS < 15 (0-50); LDL Cholesterol Calculated 70 mg/dL (<100); Potassium 3.8 mmol/L (3.4-5.1); Sodium 137 mmol/L (137-145); Total Protein 7.2 g/dL (6.3-8.2); Triglycerides 155 mg/dL (35-150)
[2022-09-12 15:08] LABS: Creatinine Urine Random 211.4 mg/dL
[2022-09-12 15:12] LABS: Microalbumi Creatinin Ratio Ur 5.6 ug/mg CR (<30); Microalbumin Urine Random 1.2 mg/dL (0-1.6)
== END ==
PROVIDERS: PCP Family Medicine; Referring Provider Family Medicine; Visit Provider Family Medicine
DX: E78.2 Mixed hyperlipidemia (principal); I10 Essential (primary) hypertension; M06.9 Rheumatoid arthritis, unspecified; E55.9 Vitamin D deficiency, unspecified
CPT/HCPCS: 36415; 80053; 80061; 82043; 82306; 82570; 85025

== ENCOUNTER 2022-10-19 15:56 | Outpatient (RCR) | payer MEDICARE, OTHER, SELFPAY ==
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
--- NOTE | 2022-10-19 19:22 | PT.OPPOC ---
Physical, Occupational & Speech Therapy At [facility] Current Diagnoses Pain in left shoulder (10/19/22) Cervicalgia (10/19/22) Visit Care Team Role Provider Type Nilo Mendoza MD Attending Provider Physician Family Provider Primary Care Provider Referring Provider Specialty: Family Practice Address: [address] [place] [address], [facility] Email: [email or web address] Plan Of Care PT-OP-T Assessment and Plan Start: 10/12/22 17:57 Freq: Status: Active Protocol: Document 10/19/22 16:10 [facility] (Rec: 10/19/22 19:22 [facility] [id number]) Physical Therapy Assessment Rehab Potential Rehabilitation Potential Fair Evaluation Complexity Number of Personal Factors/Comorbidities 3 or More Number of Body Systems Impaired 4 or More Clinical Presentation at Evaluation Unstable Impairments Impairments Activity Tolerance,Functional Activities,Functional Mobility ,Pain,Posture,ROM,Soft Tissue Mobility,Strength Goals strength Short Term Goal (STG) Pt will be indep w/HEP STG Duration 11/19 Visual Manager Goal (LTG) pt will score 5/5 for all LUE MMT w/o inc pain. LTG Duration 01/11 pain Short Term Goal (STG) Pt will report pain will not be constant in L shoulder and UE STG Duration 11/19 Visual Manager Goal (LTG) Pt will report no inc in shoudler pain w/AROM of L shoulder in order to dec pain w/typical ADLs LTG Duration 01/11 Assessment Summary Assessment Pt has complicated presentation w/L breast pain that radiates into my lymph nodes and down LUE whcih pt notes pain as diffuse to LUE, but stops at wrist. Pain is worse when she is resting and better when she moves. She has no specific onset and was neg for all neural testing. Pt had pain in L shoulder area w/ LUE ROM consistant w/potential tendonopathy, but the LUE pain and breast pain was more concerning despite neg mammogram in Apr. Presentation is not typical as she does not have tenderness at ribs post, lat or ant and only tenderness at rib 4 costocondral junction. She would benefit from further testing and MD was called. Plan to check DTR and spurling to assess any other concerns. Physical Therapy Plan Frequency and Duration Frequency of Treatment 1-2x/wk Duration of treatment (weeks) 12 Plan of Care Start Date 10/19/22 Plan of Care End Date 01/11/23 Therapeutic Interventions Therapeutic Interventions Gait Training,Home Exercise Program,Joint Mobilizations, Manual Therapy,Neuromuscular Re-education,Patient/Caregiver Education,Self-Care/Home Management,Soft Tissue Mobilization,Taping, Therapeutic Activities, Therapeutic Exercises Next Visit Focus/Plan Next Note Type Treatment Note Next Visit Plan DTR testing, Spurling & Traction testing, try GH mobs, give gentle AAROM exercises, await further discussion from MD Plan of Care Dates Plan of Care Start Date 10/19/22 Plan of Care End Date 01/11/23 Electronically Signed by: Jeannine Amezquita, PT 10/19/22 4432 If you are in agreement with this Plan of Care, please return a signed and dated copy. I have reviewed this Plan of Care and certify that the skilled therapy services above are required to meet the patient?s needs. Physician Signature Date Printed Name and Credentials Clinical Instructor Signature Printed Name and Credentials
--- NOTE | 2022-11-15 15:03 | PT-OP ANOTE ---
Pt called re: difficulty scheduling and message left encouraging WL and let pt know that PT did contact provider's office re: concerns re: breast pain. Pt encouraged to call back to discuss further as needed
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
== END 2023-01-08 16:04 | disposition home or self-care (01) ==
LOC: PHYS 15:56
PROVIDERS: Family Provider Family Medicine; PCP Family Medicine; Referring Provider Family Medicine; Visit Provider Family Medicine
DX: M25.512 Pain in left shoulder (principal); M54.2 Cervicalgia
CPT/HCPCS: 97163; 97535

== ENCOUNTER → 2022-11-28 15:55 | Outpatient (CLI) | payer MEDICARE, OTHER, SELFPAY ==
--- NOTE | 2022-11-28 15:56 | DI.RAD.S_ITS ---
PROCEDURE: XR LUMBAR SPINE MIN 4V INDICATIONS: low back pain TECHNIQUE: 5 views of the lumbar spine were acquired, including bilateral oblique views. COMPARISON: [facility], CR, XR LUMBAR SPINE 2 OR 3 VIEWS, 10/18/2021, 13:43. FINDINGS: Bones: 5 nonrib-bearing vertebrae are present. There is normal bony alignment. There is moderate chronic wedging of L1, as before. No acute appearing vertebral body compression fractures. No suspicious bony lesions. Multilevel disc space narrowing and endplate osteophyte formation, as well as facet hypertrophy. Posterior fusion hardware at T11-L2 is present. Soft tissues: Overlying bowel gas pattern is normal. No suspicious soft tissue calcifications. IMPRESSION: 1. Postsurgical sequelae. 2. Multilevel degenerative disc and facet disease. 3. No acute fracture. No osseous lesion. If symptoms and/or clinical suspicion for pathology persist, further assessment with repeat, or advanced imaging (e.g., CT, MRI, or bone scan) may be helpful for further assessment. Dictated by: Sagar Johnston M.D. on 11/29/2022 at 13:11 Approved by: Sagar Johnston M.D. on 11/29/2022 at 13:12
--- NOTE | 2022-11-28 15:56 | DI.RAD.S_ITS ---
PROCEDURE: XR CERVICAL SPINE 4V OR 5V INDICATIONS: Neck/left shoulder pain TECHNIQUE: 5 views of the cervical spine acquired. COMPARISON: None. FINDINGS: Bones: No fractures or dislocations to the C6 level. Oblique images demonstrate no bony foraminal stenoses. Multilevel disc space narrowing and endplate osteophyte formation, as well as facet hypertrophy. Soft tissues: No prevertebral soft tissue swelling. IMPRESSION: Multilevel degenerative disc and facet disease. No acute fracture. No osseous lesion. If symptoms and/or clinical suspicion for pathology persist, further assessment with repeat, or advanced imaging (e.g., CT, MRI, or bone scan) may be helpful for further assessment. Dictated by: Sagar Johnston M.D. on 11/29/2022 at 13:10 Approved by: Sagar Johnston M.D. on 11/29/2022 at 13:11
== END ==
PROVIDERS: Family Provider Family Medicine; PCP Family Medicine; Referring Provider Anesthesiology; Visit Provider Anesthesiology
DX: M47.812 Spondylosis without myelopathy or radiculopathy, cervical region (principal); M50.30 Other cervical disc degeneration, unspecified cervical region; M51.16 Intervertebral disc disorders with radiculopathy, lumbar region; M47.26 Other spondylosis with radiculopathy, lumbar region; M54.9 Dorsalgia, unspecified; M25.512 Pain in left shoulder; M75.22 Bicipital tendinitis, left shoulder; M53.3 Sacrococcygeal disorders, not elsewhere classified; M70.61 Trochanteric bursitis, right hip; M70.62 Trochanteric bursitis, left hip; G89.29 Other chronic pain; Z98.1 Arthrodesis status
CPT/HCPCS: 72050; 72110; 99214

== ENCOUNTER → 2022-12-05 15:43 | Outpatient (CLI) | payer MEDICARE, OTHER, SELFPAY ==
--- NOTE | 2022-12-05 15:45 | DI.MRI.S_ITS ---
PROCEDURE: MR LUMBAR SPINE WO CON INDICATIONS: LBP with radiculopathy s/p fall, h/o T11-L2 fusion TECHNIQUE: Noncontrast sagittal T1 spin echo and T2 fast echo, sagittal STIR, and T2 fast spin echo through the lumbar spine. In cases with scoliosis, additional coronal T2 fast spin echo may be performed. COMPARISON: [facility], MR, MR LUMBAR SPINE WO CON, 10/27/2021, 10:38. FINDINGS: Image quality: Excellent. Alignment and Curvature: There is normal bony alignment. Bone Marrow: Wedge-shaped L1 compression fracture with small retropulsed fracture fragment and associated posterolateral fusion T11 through L2 with posterior lissette and screw instrumentation is again noted, stable from the prior exam. Incidental sacral perineural cysts Spinal Cord: Conus medullaris terminates at the L1 level. Visualized cord demonstrates normal signal and size. Paraspinous Soft Tissues: No paravertebral masses. T12-L1: Interbody and posterolateral fusion with retropulsed old fracture fragment results in mild central stenosis. Moderate bilateral foraminal stenosis L1-L2: Disc space narrowing with mild circumferential disc bulge. Mild central stenosis present. Moderate bilateral foraminal stenosis. L2-L3: Disc height is preserved. No central or foraminal stenosis. L3-L4: Disc space narrowing with asymmetric left disc bulge effaces the left lateral recess, increased from the prior. Mild central stenosis present. Moderate bilateral foraminal stenosis greater on the left. L4-L5: Disc space narrowing and degenerative endplate changes present. Hypertrophic facet joints. No central stenosis. Moderate left and mild right foraminal stenosis. L5-S1: Disc height is preserved. No central stenosis. Moderate bilateral foraminal stenosis. IMPRESSION: Multilevel degenerative disc disease and arthropathy results in varying degrees of central and foraminal stenosis including effacement of the left lateral recess at L3-4 with moderate bilateral foraminal stenosis. Old healed L1 compression fracture with instrumented posterolateral fusion, stable from prior exam. Approved by: Joshua Bradley M.D. on 12/06/2022 at 14:37
== END ==
PROVIDERS: Family Provider Family Medicine; PCP Family Medicine; Referring Provider Anesthesiology; Visit Provider Anesthesiology
DX: M51.16 Intervertebral disc disorders with radiculopathy, lumbar region (principal); M47.26 Other spondylosis with radiculopathy, lumbar region; M48.061 Spinal stenosis, lumbar region without neurogenic claudication; M48.56XS Collapsed vertebra, not elsewhere classified, lumbar region, sequela of fracture; M54.9 Dorsalgia, unspecified; Z98.1 Arthrodesis status
CPT/HCPCS: 72148

== ENCOUNTER 2022-12-20 14:01 | Outpatient (CLI) | payer MEDICARE, OTHER, SELFPAY ==
--- NOTE | 2022-12-20 14:02 | DI.RAD.S_ITS ---
PROCEDURE: PAIN L/S TRANSFORAMINAL INJECT INDICATIONS: RADICULOPATHY COMPARISON: [facility], MR, MR LUMBAR SPINE WO CON, 12/05/2022, 15:53. [facility], CR, XR LUMBAR SPINE MIN 4V, 11/28/2022, 16:24. FINDINGS: Fluoroscopic spot filming was performed to verify placement of a spinal needle at the L3-L4 level, as labeled on the films. Appropriate location of the needle tip was confirmed by injection of iodinated contrast. IMPRESSION: Intraprocedural examination within normal limits. Dictated by: Andre Mueller M.D. on 12/20/2022 at 17:35 Approved by: Andre Mueller M.D. on 12/20/2022 at 17:36
[2022-12-20 14:05] VITALS: BP 162/70; PULSE 85; RESP 18; TEMP 36.4; O2SAT 96
--- NOTE | 2022-12-20 14:07 | PC.NURSE ---
Patient declined IV insertion or sedation.
--- NOTE | 2022-12-20 14:15 | PC.NURSE ---
Refusing IV/Refusing sedation/refusing numbing medication Patient refusing to have IV saline lock placed for pain procedure today. Patient stating to Dr. Rodriguez that she does not want numbing medication for the procedure today. Patient did not want this RN to go through post procedure instructions with her in depth stating yeah, yeah, I got it all before while checking in patient to pre-procedure today.
[2022-12-20 14:27] VITALS: BP 177/74; PULSE 79; RESP 19; O2SAT 96
[2022-12-20] MEDS: DEXAMETHASONE 10 MG/ML VIAL INJ (14:29)
[2022-12-20] MEDS: IOPAMIDOL 15 ML VIAL 3 ML INJ (14:29)
[2022-12-20 14:32] VITALS: BP 157/71; PULSE 80; RESP 17; O2SAT 99
[2022-12-20 14:35] VITALS: BP 159/69; PULSE 77; RESP 15; O2SAT 99
--- NOTE | 2022-12-20 16:37 | P.PCN_ITS ---
Date/Time/Diagnoses Date of procedure: 12/20/22 Time of procedure: 14:30 Procedure Notes Physician: Papito Rodriguez Total Fluoroscopy time (seconds): 18 Total sedation minutes: 0 Procedure in detail & Post-procedure care: Left L3-4 Transforaminal Epidural Steroid Injection Indications: Daija is presenting for treatment of lumbar radiculopathy with low back and leg pain. Preoperative diagnosis: Lumbar radiculopathy Postoperative diagnosis: Same Focused Examination: Ax3 Mood and affect are normal Vital Signs: VSS Consent: Following review of allergies and potential side effects/complications, including, but not necessarily limited to, infection, allergic reaction, local tissue breakdown, stroke, temporary or permanent nerve injury, paralysis, and possible , the patient indicated that they understood and agreed to procee d.? An informed consent document was signed by the patient, witnessed by a nurse and placed in the patient's chart.? Additionally, other treatment options including medications and physical therapy were reviewed with the patient. All questions were answered. Site was then marked. Anesthesia: None, patient declines IV sedation as well as local anesthetic Position: Prone Monitoring: NIBP, Pulse oximetry, 3 lead EKG Needle used: 22G 5 inch spinal needle Contrast: Isovue 300M Injectate: 10 mg Dexamethasone mixed with normal saline 2 mL Technique: The skin was prepped with chloraprep and draped in a sterile fashion. Time out was performed as per protocol. Oxygen applied via NC. Skin and subcutaneous structures of the needle entry site were identified with fluoroscopy. Under fluoroscopic guidance, using an ipsilateral oblique view,?a 22 gauge 5 inch needle was advanced to the base of the L3?pedicle.? The needle was advanced to the superio-posterior aspect of the neural foramen under lateral view.? Oblique and AP views were rechecked. No paresthesias noted by the patient during needle placement. In AP view and utilizing real-time digital subtraction fluoroscopy, 2 ml contrast was slowly injected. Epidural spread was observed without evidence for intravascular nor intrathecal uptake. Contrast spread was seen craniocaudally. The above injectate was then administered, and the needle was subsequently withdrawn. Band-Aids applied to injection sites. EBL: less than 1 ml Complications: None Post Procedure: Patient was taken to the recovery and monitored. The patient was provided a Pain Log to continue to record the patient's response to the target- specific procedure prior to the patient's follow-up visit with the referring physician. Patient was stable upon discharge. Detailed post procedure instructions were provided. Patient was asked to call in the event of worsening pain, fever, weakness, numbness or bladder or bowel incontinence.
== END 2022-12-20 14:40 | disposition home or self-care (01) ==
LOC: RAD 14:02
PROVIDERS: Family Provider Family Medicine; PCP Family Medicine; Referring Provider Anesthesiology; Visit Provider Anesthesiology
DX: M54.16 Radiculopathy, lumbar region (principal)
CPT/HCPCS: 64483; J1100

== ENCOUNTER → 2023-01-02 16:16 | Outpatient (CLI) | payer MEDICARE, OTHER, SELFPAY ==
--- NOTE | 2023-01-02 16:19 | DI.RAD.S_ITS ---
PROCEDURE: XR HIP W PEL IF DONE JASIEL MIN 4V INDICATIONS: Hip pain TECHNIQUE: AP pelvis with lateral view(s) of the right and left hip(s). COMPARISON: None. FINDINGS: Bones: No fractures or dislocations. Pelvic ring appears intact. No suspicious bony lesions. Moderate bilateral hip osteoarthritis with osseous hypertrophy and mild joint space narrowing. Soft tissues: The visualized bowel gas pattern is normal. No suspicious soft tissue calcifications. IMPRESSION: Moderate bilateral hip osteoarthritis. Dictated by: Aurelia Herrera MD, PhD on 01/02/2023 at 16:33 Approved by: Aurelia Herrera MD, PhD on 01/02/2023 at 16:33
== END ==
PROVIDERS: Family Provider Family Medicine; PCP Family Medicine; Referring Provider Anesthesiology; Visit Provider Anesthesiology
DX: M70.61 Trochanteric bursitis, right hip (principal); M70.62 Trochanteric bursitis, left hip; M25.552 Pain in left hip; M16.0 Bilateral primary osteoarthritis of hip; M75.22 Bicipital tendinitis, left shoulder; M25.512 Pain in left shoulder; G89.29 Other chronic pain
CPT/HCPCS: 73522; 99213

== ENCOUNTER → 2023-01-09 11:37 | Outpatient (CLI) | payer MEDICARE, OTHER, SELFPAY ==
--- NOTE | 2023-01-09 11:38 | DI.MRI.S_ITS ---
PROCEDURE: MR SHOULDER LT WO CON INDICATIONS: Chronic left shoulder pain s/p fall TECHNIQUE: Noncontrast oblique coronal T2 fast spin echo with fat saturation, oblique sagittal T1 spin echo and T2 fast spin echo with fat saturation, axial T1 spin echo and T2 fast spin echo with fat saturation through the shoulder. COMPARISON: [facility] [place], CR, XR SHOULDER 2+ VIEWS LEFT, 05/29/2022, 14:10. FINDINGS: Image quality: Excellent. Rotator cuff: There is low-grade articular surface tearing of the anterior, mid, and posterior supraspinatus tendon at the humeral insertion site extending to the musculotendinous junction. Low-grade articular surface tearing of the mid and s upper subscapularis tendon at the humeral insertion site. Infraspinatus and teres minor tendons are intact. No rotator cuff atrophy. Bones and bursae: No bone marrow contusions or fractures. Mild glenohumeral and acromioclavicular joint degeneration. The acromion demonstrates conventional anatomy, without an os acromiale. No pathologic subacromial-subdeltoid or subcoracoid bursal fluid is present. Capsule and soft tissues: Labrum is grossly intact The long head of the biceps tendon demonstrates normal location and morphology. The rotator interval appears normal, without fibrosis. The coracohumeral ligament is normal in thickness. IMPRESSION: 1. Low-grade tearing of the supraspinatus tendon. No full-thickness rotator cuff tear. 2. Acromioclavicular and glenohumeral joint osteoarthritis. Dictated by: Sagar Johnston M.D. on 01/09/2023 at 13:23 Approved by: Sagar Johnston M.D. on 01/09/2023 at 13:27
== END ==
PROVIDERS: Family Provider Family Medicine; PCP Family Medicine; Referring Provider Anesthesiology; Visit Provider Anesthesiology
DX: M75.112 Incomplete rotator cuff tear or rupture of left shoulder, not specified as traumatic (principal); M19.012 Primary osteoarthritis, left shoulder; M25.512 Pain in left shoulder; M75.20 Bicipital tendinitis, unspecified shoulder
CPT/HCPCS: 73221

== ENCOUNTER → 2023-01-16 16:18 | Outpatient (CLI) | payer MEDICARE, OTHER, SELFPAY ==
--- NOTE | 2023-01-16 16:23 | DI.RAD.S_ITS ---
PROCEDURE: XR KNEE RT 3V INDICATIONS: Bilateral knee pain TECHNIQUE: 3 views of the knee were acquired. COMPARISON: None. FINDINGS: Bones: No fractures or dislocations. No suspicious bony lesions. Tricompartmental osteoarthritic changes with moderate medial joint space narrowing. Tricompartmental marginal spurring. Soft tissues: No joint effusion. No suspicious soft tissue calcifications. IMPRESSION: Tricompartmental osteoarthritic changes with moderate medial joint space narrowing. Dictated by: Barrington Yao M.D. on 01/16/2023 at 17:22 Approved by: Barrington Yao M.D. on 01/16/2023 at 17:24
--- NOTE | 2023-01-16 16:23 | DI.RAD.S_ITS ---
PROCEDURE: XR KNEE LT 3V INDICATIONS: Bilateral knee pain TECHNIQUE: 3 views of the knee were acquired. COMPARISON: [facility] [place], CR, XR KNEE 4+ VIEWS LEFT, 05/31/2022, 14:35. FINDINGS: Bones: No fractures or dislocations. No suspicious bony lesions. Tricompartmental osteoarthritic changes with mild medial joint space narrowing and tricompartmental marginal spurring. Soft tissues: Trace joint effusion. No suspicious soft tissue calcifications. IMPRESSION: Mild osteoarthritic changes of the knee. No acute osseous abnormalities. Dictated by: Barrington Yao M.D. on 01/16/2023 at 17:20 Approved by: Barrington Yao M.D. on 01/16/2023 at 17:22
== END ==
PROVIDERS: Family Provider Family Medicine; PCP Family Medicine; Referring Provider Anesthesiology; Visit Provider Anesthesiology
DX: M25.561 Pain in right knee (principal); M25.562 Pain in left knee; M70.61 Trochanteric bursitis, right hip; M70.62 Trochanteric bursitis, left hip; M25.552 Pain in left hip; M53.3 Sacrococcygeal disorders, not elsewhere classified; M54.16 Radiculopathy, lumbar region; M25.512 Pain in left shoulder; M75.112 Incomplete rotator cuff tear or rupture of left shoulder, not specified as traumatic; G89.29 Other chronic pain; Z98.1 Arthrodesis status
CPT/HCPCS: 20611; 73562; 99213; J1030

== ENCOUNTER 2023-01-31 14:25 | Outpatient (CLI) | payer MEDICARE, OTHER, SELFPAY ==
--- NOTE | 2023-01-31 14:26 | DI.RAD.S_ITS ---
PROCEDURE: PAIN SI JOINT INJECTION INDICATIONS: SI Joint Dysfunction COMPARISON: [facility], XA, PAIN L/S TRANSFORAMINAL INJECT, 12/20/2022, 14:26. FINDINGS: On these intraprocedural images, there is a spinal needle seen overlying the inferior aspect of the left sacroiliac joint. Appropriate position of the tip of the needle was confirmed by injection of a small amount of iodinated contrast. IMPRESSION: Successful sacroiliac joint injection. Dictated by: Andre Mueller M.D. on 01/31/2023 at 17:52 Approved by: Andre Mueller M.D. on 01/31/2023 at 17:52
[2023-01-31 14:30] VITALS: BP 158/72; PULSE 88; RESP 18; TEMP 36; O2SAT 95
[2023-01-31 15:04] VITALS: BP 181/76; PULSE 86; RESP 18; O2SAT 94
[2023-01-31] MEDS: DEXAMETHASONE 10 MG/ML VIAL INJ (15:05)
[2023-01-31] MEDS: iopamidoL 15 ML VIAL 3 ML INJ (15:06)
[2023-01-31 15:09] VITALS: BP 161/74; PULSE 80; RESP 15; O2SAT 96
[2023-01-31 15:14] VITALS: BP 161/70; PULSE 80; RESP 16; O2SAT 96
--- NOTE | 2023-01-31 16:38 | P.PCN_ITS ---
Date/Time/Diagnoses Date of procedure: 01/31/23 Time of procedure: 15:00 Procedure Notes Physician: Papito Rodriguez Total Fluoroscopy time (seconds): 12 Total sedation minutes: 0 Procedure in detail & Post-procedure care: Left Sacroiliac Joint Injection Indications: Daija is presenting for treatment of SI joint dysfunction with low back/buttock pain. Preoperative diagnosis: Left SI joint dysfunction Postoperative diagnosis: Same Focused Examination: Ax3 Mood and affect are normal Vital Signs: VSS Consent: Following review of allergies and potential side effects/complications, including, but not necessarily limited to, infection, allergic reaction, local tissue breakdown, stroke, temporary or permanent nerve injury, paralysis, and possible , the patient indicated that they understood and agreed to proceed.? An informed consent document was signed by the patient, witnessed by a nurse and placed in the patient's chart.? Additionally, other treatment options including medications and physical therapy were reviewed with the patient. All questions were answered. Site was then marked. Anesthesia: None - patient declines sedation as well as local anesthetic Position: Prone Monitoring: NIBP, Pulse oximetry, 3 lead EKG Needle used: 22 ga, 3.5 inch spinal Contrast: 2 mL Isovue M-300 Injectate: Dexamethasone 10 mg with normal saline 2 mL Technique: The skin was prepped with chloraprep and then draped in a sterile fashion. Time out was performed as per protocol. Oxygen applied via NC. Under AP and lateral fluoroscopic control, the spinal needle was guided into the left sacroiliac joint. 1 mL contrast was injected and was consistent with intra- articular placement. There was no evidence for intravascular uptake. After negative aspiration, the above-mentioned injectate was then slowly administered and the needle withdrawn. The patient expressed no unusual discomfort or paresthesias during the injection. EBL: less than 1 ml Complications: None Post Procedure: Patient was taken to the recovery and monitored. The patient was provided a Pain Log to continue to record the patient's response to the target- specific procedure prior to the patient's follow-up visit with the referring physician. Patient was stable upon discharge. Detailed post procedure instructions were provided. Patient was asked to call in the event of worsening pain, fever, weakness, numbness or bladder or bowel incontinence.
== END 2023-01-31 15:20 | disposition home or self-care (01) ==
PROVIDERS: Family Provider Family Medicine; PCP Family Medicine; Referring Provider Anesthesiology; Visit Provider Anesthesiology
DX: M53.3 Sacrococcygeal disorders, not elsewhere classified (principal)
CPT/HCPCS: 27096; 77002; J1100

== ENCOUNTER → 2023-02-12 14:29 | Outpatient (CLI) | payer MEDICARE, OTHER, SELFPAY ==
--- NOTE | 2023-02-12 14:30 | DI.RAD.S_ITS ---
Bone Density Report Name: DAVIE MAI Age: 83 Sex: Female Ethnicity: White Date of : 1940 Indication: postmenopausal; screening for osteoporosis; Referring Provider: SUZY FAY Study: Bone densitometry was performed. Exam Date: February 12, 2023 Accession number: [id number] Bone Density: Region BMD T-score Z-score Classification AP Spine(L3, L4) 1.501 3.6 6.5 Normal Femoral Neck (Left) 0.758 -0.8 1.5 Normal Total Hip (Left) 1.006 0.5 2.6 Normal Femoral Neck (Right) 0.916 0.6 3.0 Normal Total Hip (Right) 0.991 0.4 2.5 Normal Total Hip Mean 0.998 0.5 2.6 Normal World Health Organization criteria for BMD impression classify patients as: Normal (T-score at or above -1.0), Osteopenia (T-score between -1.0 and -2.5), or Osteoporosis (T-score at or below -2.5). 10-year Fracture Risk: FRAX not reported because: All T-scores for Spine Total, Hip Total, Femoral Neck at or above -1.0 Previous Exams: -- Region Exam Age BMD T-score BMD Change BMD Change Date g/cm2 vs Baseline vs Previous -- AP Spine (L3-L4) 02/12/2023 83 1.501 3.6 0.166 (12.4%)# 0.003 (0.2%)# 08/23/2020 80 1.498 3.6 0.163 (12.2%)* 0.163 (12.2%)* 06/12/2007 67 1.335 2.1 Total Hip(Left) 02/12/2023 83 1.006 0.5 0.063 (6.7%)# -0.020 (-2.0%)# 08/23/2020 80 1.026 0.7 0.083 (8.8%)* 0.083 (8.8%)* 06/12/2007 67 0.943 0.0 Total Hip(Right) 02/12/2023 83 0.991 0.4 0.053 (5.6%)# -0.011 (-1.1%)# 08/23/2020 80 1.002 0.5 0.064 (6.8%)* 0.064 (6.8%)* 06/12/2007 67 0.938 0.0 -- *Denotes significance at 95% confidence level, LSC for AP Spine = 0.022 g/cm2, LSC for Total Hip = 0.027 g/cm2 Rate of change results reflect vertebral levels common to all scans # Denotes dissimilar scan types or analysis methods Impression: The patient has normal bone mass. No significant bone loss was observed. Discussion: BONE DENSITY IS ABOVE THE MINIMUM DESIRABLE LEVEL AT ALL SKELETAL SITES TESTED. This patient's bone mineral density is above the minimum desirable level (T-score -1.0 or better) at all sites measured. The patient should follow a healthful lifestyle (good nutrition with adequate calcium and vitamin D, and appropriate weight-bearing exercise). Follow-Up: Consider repeating this study in 5 years or sooner if there is some new clinical indication. Reported by: ANNA JULIAN M.D. on 02/12/2023 2:56:00 PM.
== END ==
PROVIDERS: Family Provider Family Medicine; PCP Family Medicine; Referring Provider Anesthesiology; Visit Provider Anesthesiology
DX: S32.010A Wedge compression fracture of first lumbar vertebra, initial encounter for closed fracture (principal); Z78.0 Asymptomatic menopausal state
CPT/HCPCS: 77080

== ENCOUNTER → 2023-08-10 12:24 | Outpatient (CLI) | payer MEDICARE, OTHER, SELFPAY ==
--- NOTE | 2023-08-10 12:27 | DI.CT.S_ITS ---
PROCEDURE: CT ANGIO CHEST ABDOMEN PELVIS INDICATIONS: Atherosclerosis of aorta TECHNIQUE: Precontrast 5 mm thick sections acquired from the lung apices to the iliac crests. After the administration of intravenous contrast, 2.5 mm thick sections again acquired from the lung apices to the iliac crests. Maximum intensity projection (MIP) oblique sagittal and coronal reformats were then acquired. For radiation dose reduction, the following was used: automated exposure control. [facility]: [facility] [place], CR, XR LUMBAR SPINE 2 OR 3 VIEWS, 10/18/2021, 13:43. FINDINGS: Image quality: Diagnostic. AORTA: Scant atheromatous calcifications are present at the thoracic aortic arch. There is conventional anatomy of the great vessels. The descending thoracic aorta demonstrates normal course and caliber. No aortic dissection or stenosis. The mesenteric arteries and renal arteries are widely patent. There is a mild stenosis at the origin of the right common iliac artery. The pelvic arteries are otherwise widely patent where visualized. CHEST: Lower Neck: No enlarged lymph nodes. Thyroid: No thyroid nodules which require sonographic evaluation. Axillae: No enlarged lymph nodes. Chest Wall: Unremarkable. Lungs and Pleura: No pneumothorax or pleural effusions. No consolidation or suspicious nodules. Heart: Heart size is normal. No pericardial effusion. Thoracic Vessels: Pulmonary arteries demonstrate normal size. Mediastinum and Felicia: No enlarged lymph nodes. Esophagus: No wall thickening. No hiatal hernia. ABDOMEN: Liver: No solid mass. Gallbladder: No radiopaque gallstones or wall thickening. Biliary ducts: No biliary dilation. Pancreas: No ductal dilation. Spleen: Size is within normal limits. Adrenal Glands: No right adrenal gland nodules. An intermediate density 1.3 cm left adrenal gland nodule is noted suggesting the presence of a lipid poor adenoma. Kidneys and Ureters: No hydronephrosis. No solid mass. No complex renal cystic lesion which requires follow up. Stomach and Bowel: Normal colonic caliber, without significant wall thickening. The appendix is not visualized; however there is no discrete right lower quadrant fluid or fat stranding to suggest acute appendicitis. Peritoneum: No abnormal intraperitoneal fluid. No free air. Ventral Wall: No hernia. Abdominal Nodes: No retroperitoneal or mesenteric adenopathy by size criteria. Vessels: Inferior vena cava is normal in size. PELVIS: Pelvic Organs: Unremarkable. Bladder: Unremarkable. Pelvic Nodes: No enlarged lymph nodes. Miscellaneous: No inguinal hernias are seen. Bones: Thoracolumbar fixation hardware is redemonstrated. Compression deformity at L1 is unchanged from the study dated October 18, 2021. IMPRESSION: 1. No aortic dissection, aneurysmal dilatation, hemodynamically significant stenosis, or intramural hematomas. 2. No acute thoracic or intra-abdominal findings. 3. Probable left adrenal adenoma. If further characterization is warranted, nonemergent adrenal mass protocol CT or MR could be used. Dictated by: Betty Grissom M.D. on 08/10/2023 at 14:46 Approved by: Betty Grissom M.D. on 08/10/2023 at 15:09
[2023-08-10 13:18] LABS: BUN Creatinine Ratio 33.3 (6-22); Blood Urea Nitrogen 22 mg/dL (7-17); Calcium 9.4 mg/dL (8.4-10.2); Carbon Dioxide 27 mmol/L (22-32); Chloride 107 mmol/L (98-107); Estimated Glomerular Filt Rate > 60 mL/min (>60); Glucose 104 mg/dL (80-110); HEMOLYSIS < 15 (0-50); Potassium 3.7 mmol/L (3.4-5.1); Sodium 137 mmol/L (137-145)
== END ==
PROVIDERS: Family Provider Family Medicine; PCP Family Medicine; Referring Provider Internal Medicine; Visit Provider Internal Medicine
DX: I70.0 Atherosclerosis of aorta (principal)
CPT/HCPCS: 36415; 71275; 74174; 80048; Q9967

== ENCOUNTER → 2023-09-04 15:26 | Outpatient (CLI) | payer MEDICARE, OTHER, SELFPAY ==
[2023-09-04 17:48] LABS: BUN Creatinine Ratio 34.2 (6-22); Blood Urea Nitrogen 27 mg/dL (7-17); Calcium 9.5 mg/dL (8.4-10.2); Carbon Dioxide 26 mmol/L (22-32); Chloride 105 mmol/L (98-107); Estimated Glomerular Filt Rate > 60 mL/min (>60); Glucose 146 mg/dL (80-110); HEMOLYSIS < 15 (0-50); Potassium 3.4 mmol/L (3.4-5.1); Sodium 138 mmol/L (137-145)
== END ==
PROVIDERS: Family Provider Family Medicine; PCP Family Medicine; Referring Provider Internal Medicine; Visit Provider Internal Medicine
DX: I70.0 Atherosclerosis of aorta (principal)
CPT/HCPCS: 36415; 80048

== ENCOUNTER 2023-10-01 08:25 | Day surgery (SDC) | payer MEDICARE, OTHER, SELFPAY ==
[2023-09-27 07:37] VITALS: BMI 25.5
[2023-10-01] VITALS (8 sets, daily range): BP systolic 107–146; BP diastolic 45–63; PULSE 78–95; RESP 12–16; TEMP 36.2–36.8; O2SAT 92–96; BMI 26.1
--- NOTE | 2023-10-01 09:51 | PM.PREOP ---
Pre-operative Note Interval Note History & Physical reviewed/Exam performed by Physician: Yes Changes to H&P: No
--- NOTE | 2023-10-01 10:04 | SUR.OPER ---
Prone on spine table, head in foam head support, padded chest and pelvic supports, gel pad at knees, lower legs supported by pillows; nipples, genitalia and toes free of pressure, arms secured on foam padded arm boards at <90 degrees abduction. Tape over blanket at thigh secured to table.
--- NOTE | 2023-10-01 11:36 | P.OP_ITS ---
Operative Date/Time/Diagnoses Date of procedure: 10/01/23 Time of procedure: 10:40 Pre-op diagnosis: 1. L3-4, L4-5 spinal stenosis 2. Lumbar radiculopathy Post-op diagnosis: same Procedure & Clinicians Procedure: 1. L3-4 laminectomy with partial facetectomy 2. L4-5 left hemilaminectomy 3. Utilization of microsurgical technique and operating microscope Same procedure as scheduled: Yes Indications: Patient has been having chronic back pain and worsening lumbar radiculopathy. Patient was found to have L3-4 L4-5 lateral recess stenosis left worse than right correlating with her symptoms. Patient failed multiple conservative management with worsening pain weakness and numbness in her lower extremity. Patient has been having difficulty performing activity of daily living. After discussing risks benefits of treatment options, patient elected proceed with surgery. Surgeon: Dwaine Mckinney Building [employer] Construction Manager: Bri Turk Click Yes if Unassisted: No Anesthesia Type: General Operative Notes Closure Type: primary Specimen(s): none sent Estimated Blood Loss (mL): 5 Blood products transfused: none Procedure in detail: Patient was seen in the preoperative area. Risks and benefits of the surgery was discussed with the patient. Informed consent was obtained from the patient and placed in the chart. Surgical site was marked. Patient was taken to the operative room. General anesthesia was administered. Prophylactic antibiotic was given to the patient less than 30 min before the incision was made. Patient was placed into a prone position on the Dhruv table. Patient's back was then prepped and draped in the sterile fashion. Time-out was performed at this time. Using AP and lateral C-arm imaging the interval between L3-4 was identified and marked on patient's back. A 1 inch incision 1 in from midline was made on the left side. The fascia was incised in line with skin incision. Globus MARS retractors was placed inside the incision and docked onto the L3 lamina. Using microsurgical technique and operating microscope, a L3-4 laminectomy was performed using a Kerrison rongeur. Liagamentum flavum was resected at the site of the laminotomy. Either side of the dura was exposed. Bilateral partial facetcomies was performed to further decompress the lateral recess. After the laminectomy was completed, the area medial lateral superior and inferior to the area of the laminectomy was inspected and explored using a micro curette. No other impinging structure was identified. The mars retractor was redirected over the L4 interval. Using microsurgical technique and operative microscope a hemilaminectomy was performed at L4-5 level. Kerrison rongeur a micro curette was used to free up the ligamentum flavum which was resected during the process of a hemilaminectomy for the further decompressing the epidural space and lateral recess. The wound was then irrigated with sterile normal saline. 40 mg Depo-Medrol was placed into the epidural space. The deep fascia was closed with 1-0 Vicryl. The subcutaneous tissue was closed with 2-0 Vicryl. The skin was closed with 4-0 Monocryl. Patient tolerated the procedure well. There were no complications. Patient was transferred recovery room in stable condition. The Operation could not have been safely performed without compromising the technical result or length of the procedure, without the assistance of a skilled surgical technologist. The surgical technologist was medically necessary for proper positioning, retraction and manipulation of instruments, proper exposure, surgical preparation, and manipulation of tissue. Complications: none Post-operative Condition: stable Disposition: PACU Plan for aftercare: Discharge to home
[2023-10-01] MEDS: LACTATED RINGERS 1,000 ML 42 ML IV (11:53)
--- NOTE | 2023-10-01 11:54 | DI.RAD.S_ITS ---
PROCEDURE: XR LUMBAR SPINE 2-3V INDICATIONS: L3-4, L4-5 MICRODISCECTOMY TECHNIQUE: 3 views of the lumbar spine were acquired. COMPARISON: [facility], , XR LUMBAR SPINE MIN 4V, 11/28/2022, 16:24. Findings and impression: Fluoroscopic intraoperative images were obtained for L3-L4 and L4-L5 level guidance. Partially seen fusion hardware. Please see operative note for full details. Degenerative changes are present. Dictated by: Nicolas Nelson M.D. on 10/01/2023 at 14:11 Approved by: Nicolas Nelson M.D. on 10/01/2023 at 14:12
== END 2023-10-01 13:03 | disposition home or self-care (01) ==
PROVIDERS: Family Provider Family Medicine; PCP Family Medicine; Referring Provider Orthopaedic Surgery Orthopaedic Surgery of the Spine; Visit Provider Orthopaedic Surgery Orthopaedic Surgery of the Spine
PROC: (CPT 63047; principal; 2023-10-01 10:15)
DX: M51.26 Other intervertebral disc displacement, lumbar region (principal); M48.061 Spinal stenosis, lumbar region without neurogenic claudication; M54.16 Radiculopathy, lumbar region
CPT/HCPCS: 63047; 63030; 72100; 76000; J0330; J1100; J1170; J2405; J2704; J3010

== ENCOUNTER → 2023-10-18 11:15 | Outpatient (CLI) | payer MEDICARE, OTHER, SELFPAY ==
[2023-10-18 12:17] LABS: Add Manual Diff / Slide Review NO; Basophils Absolute Auto 100 /uL (0-100); Basophils Percent Auto 0.8 % (0-2); Eosinophils Absolute Auto 300 /uL (0-450); Eosinophils Percent Auto 2.8 % (2-4); Hematocrit 37.9 % (36-46); Hemoglobin 12.8 g/dL (12.0-16.0); Lymphocytes Absolute Auto 4000 /uL (1100-4500); Mean Corpuscular HGB Conc 33.7 % (30-36); Mean Corpuscular Hemoglobin 32.5 PG (26-34); Mean Corpuscular Volume 96.6 fL (80-100); Monocytes Absolute Auto 700 /uL (0-900); Monocytes Percent Auto 7.6 % (3-14); Neutrophils Absolute Auto 4300 /uL (1500-7000); Neutrophils Percent Auto 45.8 % (50-75); Platelet Count 253 X10^3/uL (150-400); Red Blood Cell Count 3.92 X10^6/uL (4.0-5.2); White Blood Cell Count 9.4 X10^3/uL (4.5-11.0)
[2023-10-18 12:25] LABS: Hemoglobin A1C% w Est Avg Glu 6.2 % (4.0-6.0)
[2023-10-18 12:37] LABS: Alanine Aminotransferase 16 IU/L (<35); Albumin 4.4 g/dL (3.5-5.0); Albumin Globulin Ratio 1.4 (1.0-2.8); Alkaline Phosphatase 69 U/L (38-126); Aspartate Aminotransferase 26 IU/L (14-36); BUN Creatinine Ratio 30.3 (6-22); Bilirubin Total 0.6 mg/dL (0.2-1.3); Blood Urea Nitrogen 27 mg/dL (7-17); Calcium 9.6 mg/dL (8.4-10.2); Carbon Dioxide 26 mmol/L (22-32); Chloride 106 mmol/L (98-107); Cholesterol 188 mg/dL (140-199); Estimated Glomerular Filt Rate > 60 mL/min (>60); Globulin 3.1 g/dL (1.7-4.1); Glucose 112 mg/dL (80-110); HDL Cholesterol 67 mg/dL (40-60); HEMOLYSIS < 15 (0-50); LDL Cholesterol Calculated 80 mg/dL (<100); Sodium 140 mmol/L (137-145); Total Protein 7.5 g/dL (6.3-8.2); Triglycerides 205 mg/dL (35-150)
[2023-10-18 13:08] LABS: TSH w/ Reflex to FT4 0.55 uIU/mL (0.47-4.68)
== END ==
LOC: LAB 11:17
PROVIDERS: Family Provider Family Medicine; PCP Family Medicine; Referring Provider Family Medicine; Visit Provider Family Medicine
DX: I10 Essential (primary) hypertension (principal); E78.2 Mixed hyperlipidemia; R73.9 Hyperglycemia, unspecified; M06.9 Rheumatoid arthritis, unspecified
CPT/HCPCS: 36415; 80053; 80061; 83036; 84443; 85025

== ENCOUNTER → 2023-10-26 15:10 | Outpatient (CLI) | payer MEDICARE, OTHER, SELFPAY ==
--- NOTE | 2023-10-26 15:12 | DI.CT.S_ITS ---
PROCEDURE: CT ABDOMEN ADRENAL PROTOCOL INDICATIONS: left adrenal nodule TECHNIQUE: Noncontrast 3 mm thick sections acquired from the diaphragms to the iliac crests. After the administration of intravenous contrast, 3 mm thick venous-phase and 15-minute delayed images acquired from the diaphragms to the iliac crests. For radiation dose reduction, the following was used: automated exposure control, adjustment of mA and/or kV according to patient size. COMPARISON: [facility], , MR LUMBAR SPINE WO CON, 10/27/2021, 10:38. FINDINGS: Image quality: Excellent. Lower chest: Unremarkable. ABDOMEN: Adrenal Glands: 1.6 centimeter left adrenal nodule with low attenuation on the noncontrast CT, consistent with a benign adrenal adenoma (-22 Hounsfield unit). This is stable in size compared with 2021. Liver: No solid mass. Gallbladder: Absent. Biliary ducts: No biliary dilation. Pancreas: No ductal dilation. Spleen: Size is within normal limits. Kidneys and Ureters: No hydronephrosis. No solid mass. No complex renal cystic lesion which requires follow up. Right renal cyst with thin internal septation measuring 2.2 centimeter; Bosniak 2 requiring no further follow-up Stomach and Bowel: Normal colonic caliber, without significant wall thickening. Peritoneum: No abnormal intraperitoneal fluid. No free air. Ventral Wall: Small umbilical hernia containing fat. Abdominal Nodes: No retroperitoneal or mesenteric adenopathy by size criteria. Vessels: Aorta and inferior vena cava are normal in size. Bones: No aggressive osseous abnormality. Surgical fusion of the thoracolumbar spine. Stable compression deformity of the L1 vertebral body, with 4 millimeter endplate retropulsion. IMPRESSION: Benign left adrenal adenoma based on Hounsfield units criteria and time stability. Dictated by: Jonah Miller M.D. on 10/26/2023 at 16:38 Approved by: Jonah Miller M.D. on 10/26/2023 at 16:44
== END ==
PROVIDERS: Family Provider Family Medicine; PCP Family Medicine; Referring Provider Family Medicine; Visit Provider Family Medicine
DX: D35.02 Benign neoplasm of left adrenal gland (principal); N28.1 Cyst of kidney, acquired; K42.9 Umbilical hernia without obstruction or gangrene; M43.8X6 Other specified deforming dorsopathies, lumbar region; Z90.49 Acquired absence of other specified parts of digestive tract; Z98.1 Arthrodesis status
CPT/HCPCS: 74170; Q9967

== ENCOUNTER → 2023-12-07 07:48 | Outpatient (CLI) | payer MEDICARE, OTHER, SELFPAY ==
[2023-12-07 08:58] LABS: Cortisol AM (Before 10AM) 2.84 ug/dL (4.46-22.7)
[2023-12-11 09:10] LABS: Metanephrine,Plasma 28.3 pg/mL (0.0-88.0)
== END ==
LOC: LAB 07:49
PROVIDERS: Family Provider Family Medicine; PCP Family Medicine; Referring Provider Surgery; Visit Provider Surgery
DX: E27.8 Other specified disorders of adrenal gland (principal)
CPT/HCPCS: 36415; 82088; 82533; 83835; 84244

== ENCOUNTER 2024-01-06 02:36 | Emergency (ER) | payer MEDICARE, OTHER, SELFPAY ==
[2024-01-06] VITALS (7 sets, daily range): BP systolic 135–213; BP diastolic 60–92; PULSE 72–107; RESP 17–30; TEMP 36.6; O2SAT 91–98; BMI 26.6
--- NOTE | 2024-01-06 02:55 | EKG_ITS ---
[place] [id number] [place] [id number] Test Date: 2024-01-06 Pat Name: Daija Nelson Department: Room: Gender: Female Rn Admissions: MISA : 1940 Requested By: Order Number: [id number] Reading MD: Lizandro Byrnes Measurements Intervals [place] Rate: 83 P: 59 LA: 172 QRS: -1 QRSD: 70 T: 61 QT: 352 QTc: 413 Interpretive Statements Normal sinus rhythm Nonspecific ST abnormality Electronically Signed On 01-06-2024 7:17:31 PDT by Lizandro Byrnes
[2024-01-06 03:16] LABS: Add Manual Diff / Slide Review NO; Basophils Absolute Auto 100 /uL (0-100); Eosinophils Absolute Auto 400 /uL (0-450); Eosinophils Percent Auto 2.9 % (2-4); Hematocrit 35.2 % (36-46); Hemoglobin 11.8 g/dL (12.0-16.0); Lymphocytes Absolute Auto 5900 /uL (1100-4500); Lymphocytes Percent Auto 47.2 % (25-40); Mean Corpuscular HGB Conc 33.6 % (30-36); Mean Corpuscular Hemoglobin 32.4 PG (26-34); Mean Corpuscular Volume 96.5 fL (80-100); Monocytes Absolute Auto 1000 /uL (0-900); Monocytes Percent Auto 7.8 % (3-14); Neutrophils Absolute Auto 5200 /uL (1500-7000); Neutrophils Percent Auto 41.1 % (50-75); Platelet Count 222 X10^3/uL (150-400); Red Blood Cell Count 3.65 X10^6/uL (4.0-5.2); White Blood Cell Count 12.6 X10^3/uL (4.5-11.0)
--- NOTE | 2024-01-06 03:20 | ED.ARRPALP ---
HPI - Arrhythmia/Palpitations General Chief Complaint: Arrhythmia/Palpitations Stated Complaint: high blood pressure Time Seen by Provider: 01/06/24 02:54 Source: patient Mode of arrival: Ambulatory History of Present Illness HPI narrative: patient is an 83-year-old female. Has a history of high blood pressure. Takes her medications in the evening. Stated that she took her medications last evening. States she was woken up in the night with discomfort in her left elbow. Noticed some swelling and redness to the area. She states that she also felt her heartbeat pounding in her left ear. She took her blood pressure at home and it was elevated with a systolic blood pressure in the 190s. She states normally she runs 120s to 130 systolic. She denies any shortness of breath. No lower extremity swelling. No chest discomfort. Related Data Home Medications Medication Instructions Recorded Confirmed nitroglycerin 0.4 mg sublingual 0.4 mg sublingual 3XD PRN Chest 08/14/23 12/06/23 tablet Pain Previous Rx's Medication Instructions Recorded atorvastatin 40 mg tablet (Lipitor) 40 mg PO BEDTIME #90 tabs 04/26/23 conjugated estrogens 0.625 mg 0.625 mg PO DAILY #90 tabs 04/26/23 tablet (Premarin) losartan 100 1 tab PO DAILY #90 tabs 04/26/23 mg-hydrochlorothiazide 12.5 mg tablet DISABLED PARKING PERMIT #1 ea 07/05/23 dexamethasone 1 mg tablet 1 mg PO DAILY #1 tab 12/06/23 Allergies Allergy/AdvReac Type Severity Reaction Status Date / Time No Known Drug Allergies Allergy Verified 12/06/23 11:31 Review of Systems Review of Systems ROS Unobtainable: All systems reviewed & are unremarkable except as noted in HPI and below Patient History Medical History Osteoarthritis of knees, bilateral Osteoarthritis of left shoulder Low back pain Osteoarthritis of both hips Bilateral hip pain Myofascial pain Compression fracture of L1 lumbar vertebra Left rotator cuff tear Bilateral knee pain Hip pain Lumbar radiculopathy Greater trochanteric bursitis of both hips SI (sacroiliac) joint dysfunction Biceps tendonitis Left shoulder pain Fall Dorsalgia Cervicalgia Severe headache Fusion of lumbar spine Vitamin D deficiency Hyperlipidemia Rheumatoid arthritis Surgical History History of thoracic spinal fusion Status post lumbar spinal fusion Anesthesia Status post tonsillectomy and adenoidectomy (~1963) Status post appendectomy (~1951) Status post cholecystectomy S/P total abdominal hysterectomy and bilateral salpingo-oophorectomy (~1991) Family History Brother Heart disease Social History marital status: unmarried,single household members: none lives independently: Yes occupational status: previously employed Smoking Status: Never smoker alcohol intake: never substance use type: does not use Smoking Status: Never smoker alcohol intake frequency: holidays/special occasions only Substance Use Type: does not use Exam Initial Vital Signs Initial Vital Signs: Vital Signs Pulse Rate 107 H 01/06/24 02:42 Blood Pressure 213/92 H 01/06/24 02:42 Pulse Oximetry 97 01/06/24 02:42 Oxygen Delivery Method Room Air 01/06/24 02:42 Const General: cooperative, comfortable and No ill appearing HENMS Head: normal to inspection and normocephalic Resp Effort & Inspection: normal respiratory effort Auscultation: clear to auscultation bilaterally Cardio Rate: regular rate Rhythm: regular rhythm Skin Other: Patient with redness and swelling located over the medial malleolus of the left elbow. No induration of the area. No vesicles. No pustules. Skin over left isnot warm to the touch Neuro General: patient alert, patient awake, patient oriented x3 and moves all extremities Extrem General: No edema Other: No lower extremity edema but does have swelling around the medial malleolus of the left elbow. She was full range motion on flexion-extension of the left elbow. Course Orders Ordered: ED Orders 01/06/24 02:55 EKG-12 Lead Stat 01/06/24 03:05 Complete Blood Count AUTO DIFF Stat Comprehensive Metabolic Panel Stat Lipase Stat Magnesium Stat Troponin & CK Cardiac Panel Stat Vital Signs Vital signs: Vital Signs - 8 hr 01/06/24 02:42 01/06/24 02:42 01/06/24 02:46 Temperature 97.8 F Pulse Rate 107 H 90 Respiratory Rate 23 Blood Pressure 213/92 H 213/92 H Pulse Oximetry 97 98 Oxygen Delivery Method Room Air Room Air 01/06/24 03:00 01/06/24 03:06 01/06/24 03:06 Temperature Pulse Rate 84 81 Respiratory Rate 27 H 30 H Blood Pressure 176/75 H Pulse Oximetry 96 97 Oxygen Delivery Method 01/06/24 03:30 01/06/24 03:30 01/06/24 04:00 Temperature Pulse Rate 72 73 Respiratory Rate 17 18 Blood Pressure 152/67 H Pulse Oximetry 94 92 Oxygen Delivery Method 01/06/24 04:00 Temperature Pulse Rate Respiratory Rate Blood Pressure 135/60 Pulse Oximetry Oxygen Delivery Method MDM - Arrhythmia/Palpitations Lab Data Attestation: I reviewed the patient's lab results. 01/06/24 03:05 01/06/24 03:05 Labs: Lab Results 01/06/24 Range/Units 03:05 WBC 12.6 H (4.5-11.0) X10^3/uL RBC 3.65 L (4.0-5.2) X10^6/uL Hgb 11.8 L (12.0-16.0) g/dL Hct 35.2 L (36-46) % MCV 96.5 (80-100) fL MCH 32.4 (26-34) PG MCHC 33.6 (30-36) % RDW 13.0 (11.6-14.8) % Plt Count 222 (150-400) X10^3/uL Neut % (Auto) 41.1 L (50-75) % Lymph % (Auto) 47.2 H (25-40) % Hart % (Auto) 7.8 (3-14) % Eos % (Auto) 2.9 (2-4) % Baso % (Auto) 1.0 (0-2) % Neut # (Auto) 5200 (3168-5231) /uL Lymph # (Auto) 5900 H (5605-5415) /uL Hart # (Auto) 1000 H (0-900) /uL Eos # (Auto) 400 (0-450) /uL Baso # (Auto) 100 (0-100) /uL Sodium 137 (137-145) mmol/L Potassium 3.5 (3.4-5.1) mmol/L Chloride 104 (98-107) mmol/L Carbon Dioxide 25 (22-32) mmol/L BUN 29 H (7-17) mg/dL Creatinine 1.09 H (0.52-1.04) mg/dL Estimated GFR 51 L (>60) mL/min BUN/Creatinine Ratio 26.6 H (6-22) Glucose 133 H (80-110) mg/dL Calcium 9.6 (8.4-10.2) mg/dL Magnesium 2.1 (1.6-2.3) mg/dL Total Bilirubin 0.4 (0.2-1.3) mg/dL AST 31 (14-36) IU/L ALT 18 (<35) IU/L Alkaline Phosphatase 76 (38-126) U/L Total Creatine Kinase 68 (30-135) U/L Troponin I < 0.012 (0.01-0.034) ng/mL Total Protein 7.0 (6.3-8.2) g/dL Albumin 3.9 (3.5-5.0) g/dL Globulin 3.1 (1.7-4.1) g/dL Albumin/Globulin Ratio 1.3 (1.0-2.8) Lipase 71 (23-300) U/L ECG Data Attestation: I personally reviewed and interpreted this ECG as follows: Interpretation: Sinus rhythm Ventricular rate of 83 Normal axis Normal QRS Nonspecific ST T wave changes MDM Narrative Medical decision making narrative: blood pressure improved here in the emergency department without specific intervention. Systolic blood pressure is now down to the 130s. Nonspecific changes on the EKG and troponin is negative. Low suspicion for ACS, pulmonary edema, acute CHF or renal failure. She does have a leukocytosis. She does have redness around the medial aspect of the left elbow but it is not warm to the touch. The pain has vastly improved and she was range motion of the left elbow. The redness over the left elbow would be more consistent with an inflammation rather than a infection. Given the rather sudden onset of the redness NV somewhat concerned about potentially a allergic reaction or maybe even a insect bite but there appears to be no other systemic signs of a allergic reaction. We will hold on any antibiotics for now and the patient observed this area for the next couple days and return if her symptoms worsened. She was given return precautions follow-up instructions she expressed understanding and agreement. Discharge Plan Departure Patient Disposition: Home Clinical Impression: Hypertension, Inflammation of left elbow Instructions: High Blood Pressure (Hypertension) (Alternative Therapy) Activity Restrictions/Additional Instructions: recommend that you continue to take all of your medications as directed. Contact your primary doctor for a follow-up. I also recommend that you continue to watch the redness to your left elbow over the next 24-48 hours. If the redness worsens for becomes more painful you develop fevers please return to the emergency department for further evaluation. Prescriptions: No Action atorvastatin [Lipitor] 40 mg tablet 40 mg PO BEDTIME Qty: 90 3RF Premarin 0.625 mg tablet 0.625 mg PO DAILY Qty: 90 3RF losartan-hydrochlorothiazide 100-12.5 mg tablet 1 tab PO DAILY Qty: 90 3RF dexamethasone 1 mg tablet 1 mg PO DAILY Qty: 1 0RF Rx Instructions: Take 1 tab between 11PM and midnight. The following day at 8 am report to lab for measurement of cortisol. nitroglycerin 0.4 mg tablet, sublingual 0.4 mg sublingual 3XD PRN (Reason: Chest Pain) (DME) DISABLED PARKING PERMIT See Rx Instructions .Route .MEDSUPPLY Qty: 1 0RF Rx Instructions: As directed Referrals: Nilo Mendoza MD [Primary Care Provider] - Stand Alone Forms: Patient Portal/API
[2024-01-06 03:28] LABS: Alanine Aminotransferase 18 IU/L (<35); Albumin 3.9 g/dL (3.5-5.0); Albumin Globulin Ratio 1.3 (1.0-2.8); Alkaline Phosphatase 76 U/L (38-126); Aspartate Aminotransferase 31 IU/L (14-36); BUN Creatinine Ratio 26.6 (6-22); Bilirubin Total 0.4 mg/dL (0.2-1.3); Blood Urea Nitrogen 29 mg/dL (7-17); Calcium 9.6 mg/dL (8.4-10.2); Carbon Dioxide 25 mmol/L (22-32); Chloride 104 mmol/L (98-107); Creatine Kinase 68 U/L (30-135); Estimated Glomerular Filt Rate 51 mL/min (>60); Globulin 3.1 g/dL (1.7-4.1); Glucose 133 mg/dL (80-110); HEMOLYSIS 22 (0-50); Lipase 71 U/L (23-300); Magnesium 2.1 mg/dL (1.6-2.3); Potassium 3.5 mmol/L (3.4-5.1); Sodium 137 mmol/L (137-145)
[2024-01-06 03:39] LABS: Troponin I < 0.012 ng/mL (0.01-0.034)
== END 2024-01-06 04:40 | disposition home or self-care (01) ==
PROVIDERS: Emergency Provider Emergency Medicine; Family Provider Family Medicine; PCP Family Medicine
DX: I10 Essential (primary) hypertension (principal); M19.022 Primary osteoarthritis, left elbow; R07.9 Chest pain, unspecified
CPT/HCPCS: 36415; 80053; 82550; 83690; 83735; 84484; 85025; 93005; 99283; 99284

== ENCOUNTER → 2024-01-07 08:58 | Outpatient (CLI) | payer MEDICARE, OTHER, SELFPAY ==
--- NOTE | 2024-01-07 09:03 | DI.RAD.S_ITS ---
PROCEDURE: XR CHEST 2V INDICATIONS: Elevated BP, yellow sputum TECHNIQUE: 2 views of the chest were acquired. COMPARISON: [facility], CR, XR CHEST 2V, 02/03/2019, 12:52. FINDINGS: Heart, mediastinum and pulmonary vascular: Heart is normal in size and configuration. Mediastinum is unremarkable. Pulmonary vascular is normal. Lungs: Subsegmental bibasilar atelectasis noted. Pleural spaces: Normal-no effusions or pneumothorax. IMPRESSION: Minor bibasilar atelectasis Dictated by: Gian Gamble M.D. on 01/08/2024 at 7:56 Approved by: Gian Gamble M.D. on 01/08/2024 at 7:57
--- NOTE | 2024-01-07 09:03 | DI.RAD.S_ITS ---
PROCEDURE: XR ELBOW LT 2V INDICATIONS: Redness/swelling TECHNIQUE: 3 views of the elbow were acquired. COMPARISON: None. FINDINGS: Bones: No osseous abnormality. The elbow joint is normal in with align with arthritic change Soft tissues: Mild calcification in the medial lateral collateral ligament insertion on the humeral epicondyles appreciated IMPRESSION: Mild calcifications of the medial and lateral collateral ligament insertions which can be stigmata of old trauma (sprain) or inflammation. Please correlate with mediolateral stability on physical exam. Dictated by: Gian Gamble M.D. on 01/08/2024 at 8:01 Approved by: Gian Gamble M.D. on 01/08/2024 at 8:02
[2024-01-07 10:28] LABS: Add Manual Diff / Slide Review NO; Basophils Absolute Auto 100 /uL (0-100); Basophils Percent Auto 0.7 % (0-2); Eosinophils Absolute Auto 400 /uL (0-450); Eosinophils Percent Auto 3.2 % (2-4); Hematocrit 35.8 % (36-46); Hemoglobin 12.2 g/dL (12.0-16.0); Lymphocytes Absolute Auto 4500 /uL (1100-4500); Lymphocytes Percent Auto 40.6 % (25-40); Mean Corpuscular HGB Conc 34.1 % (30-36); Mean Corpuscular Hemoglobin 32.4 PG (26-34); Mean Corpuscular Volume 95.1 fL (80-100); Monocytes Absolute Auto 900 /uL (0-900); Monocytes Percent Auto 8.5 % (3-14); Neutrophils Absolute Auto 5200 /uL (1500-7000); Platelet Count 233 X10^3/uL (150-400); Red Blood Cell Count 3.77 X10^6/uL (4.0-5.2); Red Cell Distribution Width 13.1 % (11.6-14.8); White Blood Cell Count 11.1 X10^3/uL (4.5-11.0)
[2024-01-07 11:22] LABS: Alanine Aminotransferase 19 IU/L (<35); Albumin Globulin Ratio 1.3 (1.0-2.8); Alkaline Phosphatase 70 U/L (38-126); Aspartate Aminotransferase 26 IU/L (14-36); BUN Creatinine Ratio 27.8 (6-22); Bilirubin Total 0.4 mg/dL (0.2-1.3); Blood Urea Nitrogen 22 mg/dL (7-17); Calcium 9.5 mg/dL (8.4-10.2); Carbon Dioxide 24 mmol/L (22-32); Chloride 104 mmol/L (98-107); Estimated Glomerular Filt Rate > 60 mL/min (>60); Glucose 114 mg/dL (80-110); HEMOLYSIS < 15 (0-50); Potassium 3.7 mmol/L (3.4-5.1); Sodium 137 mmol/L (137-145)
--- NOTE | 2024-01-07 15:27 | PC.NURSE ---
Patient experienced an unwitnessed fall in the [facility] hallway at approximately 0940 today. Patient walked with this nurse at her side to the DI pain procedure's pre/post room for assessment after fall. Patient stated that she had tripped over her toes due to not lifting her feet up high enough while walking and also because she was wearing a new pair of tennis shoes. Patient stated that she had fallen on to her right side. Patient denied hitting her head. There were no apparent contusions or abrasions on her right side or face. Patient also denied having any pain any where from her fall. Her vital signs were taken and her BP was 167/74, HR 84, SPO2 99% on RA, and respirations were 16. Patient wanted to leave the hospital and go home. Patient notified by this that if she does begin to have pain or any other symptoms she thinks could be related to the fall to come to the ED immediately. Patient left on her own accord.
== END ==
PROVIDERS: Family Provider Family Medicine; PCP Family Medicine; Referring Provider Family Medicine; Visit Provider Family Medicine
DX: I10 Essential (primary) hypertension (principal); R09.3 Abnormal sputum; M19.022 Primary osteoarthritis, left elbow; D72.829 Elevated white blood cell count, unspecified; R94.4 Abnormal results of kidney function studies; R89.9 Unspecified abnormal finding in specimens from other organs, systems and tissues
CPT/HCPCS: 36415; 71046; 73070; 80053; 85025

== ENCOUNTER → 2024-02-26 13:42 | Outpatient (CLI) | payer MEDICARE, OTHER, SELFPAY ==
--- NOTE | 2024-02-26 13:43 | DI.CT.S_ITS ---
PROCEDURE: CT HEAD/BRAIN WO CON INDICATIONS: pulsatile tinnitus TECHNIQUE: Noncontrast 4.5 mm thick angled axial sections acquired from the foramen magnum to the vertex, with coronal and sagittal reformats. For radiation dose reduction, the following was used: automated exposure control, adjustment of mA and/or kV according to patient size. COMPARISON: None. FINDINGS: Image quality: Diagnostic. CSF spaces: Basal cisterns are patent. No extra-axial fluid collections. Ventricles are normal in size and shape. Brain: No midline shift. No intracranial masses or hemorrhage. Scott-white matter interface is normal. Moderate cerebral and cerebellar volume loss with multifocal white matter chronic ischemic change noted. Atherosclerotic calcification noted associated with cavernous segments of both internal carotid arteries. Skull and face: Calvarium and visualized facial bones are intact, without suspicious lesions. Sinuses: Right maxillary sinus mucosal thickening debris IMPRESSION: Atrophy and chronic ischemic change without hemorrhage or mass effect. Approved by: Joshua Bradley M.D. on 02/26/2024 at 17:19
== END ==
PROVIDERS: Family Provider Family Medicine; PCP Family Medicine; Referring Provider Family Medicine; Visit Provider Family Medicine
DX: R51.9 Headache, unspecified (principal); H93.A3 Pulsatile tinnitus, bilateral; I1A.0 Resistant hypertension; R00.2 Palpitations
CPT/HCPCS: 70450

== ENCOUNTER → 2024-03-03 13:35 | Outpatient (CLI) | payer MEDICARE, OTHER, SELFPAY | PROVIDERS: Family Provider Family Medicine; PCP Family Medicine; Referring Provider Family Medicine; Visit Provider Family Medicine | DX: R00.2 Palpitations (principal) | CPT/HCPCS: 93246; 93248 ==

== ENCOUNTER → 2024-03-17 14:56 | Outpatient (CLI) | payer MEDICARE, OTHER, SELFPAY ==
--- NOTE | 2024-03-17 14:57 | DI.MRI.S_ITS ---
PROCEDURE: MR STROKE Pre- and post-contrast brain MRI, non-contrast brain MR angiogram, pre- and postcontrast neck MR angiogram INDICATIONS: pulsatile tinnitus, htn TECHNIQUE: Brain: Noncontrast axial T1 spin echo, axial T2 fast spin echo, sagittal and axial FLAIR, coronal T2 fast spin echo, axial gradient echo, axial diffusion and ADC through the brain. After the administration of contrast, axial 3D VIBE of the cranial vasculature and brain. Brain MRA: Non-contrast 3-D time of flight MR angiogram, with multiple biblibf-qimglrdpy-muteizfiai (MIP) reformats performed. Neck MRA: Axial and sagittal TruFISP through the neck. Coronal dynamic MR angiogram during administration of contrast in the arterial and venous phases, with 3-dimenstional emkubet-tltcqtvad-wdgalqvdoz (MIP) reformats constructed from subtraction images. COMPARISON: [facility], MR, MR HEAD/BRAIN WO CON, 03/14/2021, 12:43. [facility], CT, CT HEAD/BRAIN WO CON, 02/26/2024, 14:00. FINDINGS: Image quality: Excellent. BRAIN: CSF spaces: Ventricles are normal in size and shape. Basal cisterns are patent. No extra-axial fluid collections. Brain: No intracranial bleeds or mass effects. Scott-white matter interface is normal. Diffusion weighted images show no acute infarct. Brainstem appears normal. Normal intravascular flow voids are present. No abnormal intracranial enhancement. Skull and face: Calvarial marrow signal is normal. Orbits appear normal. Note is made of bilateral lens replacements. Sinuses: Sinuses and mastoids are clear. BRAIN MR ANGIOGRAM: Anterior circulation: Intracranial internal carotid arteries are normal in size and flow. There is a diminutive left A1 segment, with a corresponding robust right A1 segment. This is considered to be a normal developmental variant of the [place], of typically no clinical consequence. The flow within the paired anterior cerebral arteries is otherwise normal and symmetric. The flow within the middle cerebral arteries is normal and symmetric. The anterior communicating artery is seen. No aneurysms are seen. Posterior circulation: The visualized portions of the vertebral arteries demonstrate normal caliber, and join to form a normal appearing basilar artery. The flow within the posterior cerebral arteries is normal and symmetric. No stenoses, occlusions, or aneurysms. In this patient with this given history, scrutiny is given to abnormal vascular loops into the internal auditory canals. None can be seen. NECK MR ANGIOGRAM: Carotids: Great vessels demonstrate a conventional anatomy as they arise from the aortic arch. The origins of the common carotid arteries appear patent. The calibers and courses of both common carotid arteries are normal. The bifurcation regions appear normal bilaterally. The internal carotid arteries demonstrate normal course and caliber. Posterior circulation: The origins of the vertebral arteries appear patent. More superior portions of both vertebral arteries demonstrate normal course and caliber, and join to form a normal appearing basilar artery. Miscellaneous: Subclavian arteries appear patent. Pre-contrast images through the neck show no soft tissue abnormalities. IMPRESSION: BRAIN MRI: No findings of acute or subacute infarction can be seen. No masses or abnormal enhancement can be seen. BRAIN MR ANGIOGRAM: No imaging explanation is found for this patient's presenting symptoms. No significant intracranial arterial abnormality is seen. NECK MR ANGIOGRAM: Within the arteries of the neck, no hemodynamically significant stenosis can be seen. Dictated by: Andre Mueller M.D. on 03/17/2024 at 15:36 Approved by: Andre Mueller M.D. on 03/17/2024 at 15:41
== END ==
LOC: MRI 14:57
PROVIDERS: Family Provider Family Medicine; PCP Family Medicine; Referring Provider Family Medicine; Visit Provider Family Medicine
DX: H93.A3 Pulsatile tinnitus, bilateral (principal); I1A.0 Resistant hypertension; I10 Essential (primary) hypertension; R00.2 Palpitations
CPT/HCPCS: 70544; 70549; 70553; A9579

== ENCOUNTER → 2024-03-19 11:21 | Outpatient (CLI) | payer MEDICARE, OTHER, SELFPAY ==
--- NOTE | 2024-03-19 11:22 | DI.US.S_ITS ---
PROCEDURE: US RENAL COMPLETE INDICATIONS: hypertension TECHNIQUE: Real-time scanning was performed of the kidneys and bladder, with image documentation. COMPARISON: [facility], CT, CT ABDOMEN ADRENAL PROTOCOL, 10/26/2023, 15:19. FINDINGS: Kidneys: Kidneys are normal in size. Right kidney measures 9.9 cm long; left kidney measures 9.8 cm long. Right renal cortical thickness is 1.0 cm; left renal cortical thickness is 1.4 cm. Renal cortical echotexture is normal. No hydronephrosis or nephrolithiasis. No suspicious solid mass lesions. Right renal cyst measuring 2.6 x 1.0 x 1.6 cm with internal debris. Bladder: Pre-void bladder volume is 92 mL. Post-void residual is 6 mL. Pre-void images demonstrate no intraluminal masses or stones. On pre-void images, bilateral ureteral jets are noted with color Doppler interrogation. (Of note, ureteral jets may not be detectable in up to 25% of cases due to insufficient differences in specific gravity between ureteral and bladder urine). Miscellaneous: No free pelvic fluid. Incidental note of hepatic steatosis. IMPRESSION: Normal appearance of the kidneys and urinary bladder. Dictated by: Barrington Yao M.D. on 03/19/2024 at 13:13 Approved by: Barrington Yao M.D. on 03/19/2024 at 13:15
== END ==
PROVIDERS: Family Provider Family Medicine; PCP Family Medicine; Referring Provider Internal Medicine Nephrology; Visit Provider Internal Medicine Nephrology
DX: N28.1 Cyst of kidney, acquired (principal); I10 Essential (primary) hypertension
CPT/HCPCS: 76770

== ENCOUNTER → 2024-05-12 11:22 | Outpatient (CLI) | payer MEDICARE, SELFPAY ==
[2024-05-12 11:59] LABS: Appearance Urine UA SL CLOUDY; Bilirubin Urine UA NEGATIVE (NEGATIVE); Color Urine UA YELLOW; Glucose Urine UA NEGATIVE (Negative); Ketones Urine UA NEGATIVE (NEGATIVE); Leukocyte Esterase Urine UA NEGATIVE (NEGATIVE); Nitrite Urine UA NEGATIVE (Negative); Occult Blood Urine UA NEGATIVE (Negative); Protein Urine UA TRACE (Negative); Urobilinogen Urine UA 0.2 E.U./dL (0.2)
[2024-05-12 12:06] LABS: Bacteria Urine None Seen; RBC Urine None Seen (0-5/HPF); Squamous Epithelial Cell Urine 10-30 /HPF (0-5/HPF); Urine Volume 10mL (spun); WBC Urine None Seen (0-5/HPF)
[2024-05-12 12:07] LABS: Culture Indicated Urine Cult Not Indicated
[2024-05-12 12:10] LABS: Creatinine Urine Random 217.64 mg/dL
[2024-05-12 12:15] LABS: Microalbumin Urine Random 1.7 mg/dL (0-1.6)
[2024-05-12 12:31] LABS: Add Manual Diff / Slide Review NO; Basophils Absolute Auto 100 /uL (0-100); Basophils Percent Auto 0.6 % (0-2); Eosinophils Absolute Auto 300 /uL (0-450); Eosinophils Percent Auto 2.6 % (2-4); Hematocrit 39.2 % (36-46); Hemoglobin 13.1 g/dL (12.0-16.0); Lymphocytes Absolute Auto 5200 /uL (1100-4500); Lymphocytes Percent Auto 45.4 % (25-40); Mean Corpuscular HGB Conc 33.5 % (30-36); Mean Corpuscular Hemoglobin 31.9 PG (26-34); Mean Corpuscular Volume 95.2 fL (80-100); Monocytes Absolute Auto 800 /uL (0-900); Neutrophils Absolute Auto 5100 /uL (1500-7000); Neutrophils Percent Auto 44.4 % (50-75); Platelet Count 251 X10^3/uL (150-400); Red Blood Cell Count 4.11 X10^6/uL (4.0-5.2); Red Cell Distribution Width 12.6 % (11.6-14.8); White Blood Cell Count 11.4 X10^3/uL (4.5-11.0)
[2024-05-12 12:48] LABS: Albumin 4.5 g/dL (3.5-5.0); BUN Creatinine Ratio 25.6 (6-22); Blood Urea Nitrogen 22 mg/dL (7-17); Calcium 9.6 mg/dL (8.4-10.2); Carbon Dioxide 28 mmol/L (22-32); Chloride 104 mmol/L (98-107); Estimated Glomerular Filt Rate > 60 mL/min (>60); Glucose 124 mg/dL (80-110); HEMOLYSIS < 15 (0-50); Sodium 138 mmol/L (137-145)
== END ==
PROVIDERS: Family Provider Family Medicine; PCP Family Medicine; Referring Provider Internal Medicine Nephrology; Visit Provider Internal Medicine Nephrology
DX: N18.9 Chronic kidney disease, unspecified (principal); R31.9 Hematuria, unspecified; D63.1 Anemia in chronic kidney disease; R80.9 Proteinuria, unspecified
CPT/HCPCS: 36415; 80048; 81001; 82040; 82043; 82570; 85025

== ENCOUNTER → 2024-05-26 09:36 | Outpatient (CLI) | payer MEDICARE, SELFPAY | PROVIDERS: Family Provider Family Medicine; PCP Family Medicine; Visit Provider Registered Nurse | DX: R30.0 Dysuria (principal) | CPT/HCPCS: 87077; 87086; 87186 ==

== ENCOUNTER → 2024-06-11 07:49 | Outpatient (CLI) | payer MEDICARE, SELFPAY ==
[2024-06-11 09:14] LABS: Albumin 4.3 g/dL (3.5-5.0); BUN Creatinine Ratio 28.7 (6-22); Blood Urea Nitrogen 25 mg/dL (7-17); Calcium 9.8 mg/dL (8.4-10.2); Carbon Dioxide 27 mmol/L (22-32); Chloride 103 mmol/L (98-107); Estimated Glomerular Filt Rate > 60 mL/min (>60); Glucose 129 mg/dL (80-110); HEMOLYSIS < 15 (0-50); Phosphorous 3.2 mg/dL (2.8-4.1); Potassium 4.1 mmol/L (3.4-5.1); Sodium 138 mmol/L (137-145)
[2024-06-11 09:30] LABS: Follicle Stimulating Hormone 0.98 mIU/mL; Luteinizing Hormone 0.677 mIU/mL
[2024-06-11 09:46] LABS: Estradiol, Total 3647.2 pg/mL
[2024-06-12 12:12] LABS: Dehydroepiandrosterone Sulfate 10.8 ug/dL (13.9-142.8)
[2024-06-16 19:07] LABS: Testosterone, Total 8.1 ng/dL (7.0-40.0); Testosterone,Free <0.2 pg/mL (0.0-4.2)
[2024-06-17 10:09] LABS: Metanephrine,Plasma 16.1 pg/mL (0.0-88.0)
[2024-06-19 21:36] LABS: Aldosterone/Renin Activity Rat 0.6 (.); Plama Renin, LC/MS/MS 37 ng/mL/hr (.)
== END ==
PROVIDERS: Family Provider Family Medicine; PCP Family Medicine; Referring Provider Student in an Organized Health Care Education/Training Program; Visit Provider Student in an Organized Health Care Education/Training Program
DX: E27.9 Disorder of adrenal gland, unspecified (principal)
CPT/HCPCS: 36415; 80069; 82088; 82627; 82670; 83001; 83002; 83835; 84244; 84402; 84403

== ENCOUNTER → 2024-07-28 11:46 | Outpatient (CLI) | payer MEDICARE, SELFPAY ==
--- NOTE | 2024-07-28 11:48 | DI.RAD.S_ITS ---
PROCEDURE: XR CHEST 2V INDICATIONS: cough, chest pain, productive sputum TECHNIQUE: 2 views of the chest were acquired. COMPARISON: [facility], CR, XR CHEST 2V, 01/07/2024, 9:29. FINDINGS: Surgical changes and devices: Posterior fusion instrumentation at the thoracolumbar junction, partially visualized. Lungs and pleura: Lungs are clear. No pleural effusions or pneumothorax. Mediastinum: Mediastinal contours are normal. Heart size is normal. Bones and chest wall: No suspicious bony abnormalities. Soft tissues appear unremarkable. IMPRESSION: No acute cardiopulmonary abnormality is seen. Dictated by: Nguyen Oneal M.D. on 07/28/2024 at 12:24 Approved by: Nguyen Oneal M.D. on 07/28/2024 at 12:25
== END ==
PROVIDERS: Family Provider Family Medicine; PCP Family Medicine; Referring Provider Family Medicine; Visit Provider Family Medicine
DX: R07.9 Chest pain, unspecified (principal); R05.8 Other specified cough
CPT/HCPCS: 71046

== ENCOUNTER → 2024-10-20 09:17 | Outpatient (CLI) | payer MEDICARE, SELFPAY ==
[2024-10-20 09:51] LABS: Add Manual Diff / Slide Review NO; Basophils Absolute Auto 100 /uL (0-100); Basophils Percent Auto 0.8 % (0-2); Eosinophils Absolute Auto 300 /uL (0-450); Hematocrit 35.4 % (36-46); Hemoglobin 12.1 g/dL (12.0-16.0); Lymphocytes Absolute Auto 4700 /uL (1100-4500); Lymphocytes Percent Auto 46.6 % (25-40); Mean Corpuscular HGB Conc 34.1 % (30-36); Mean Corpuscular Hemoglobin 32.7 PG (26-34); Mean Corpuscular Volume 95.9 fL (80-100); Monocytes Absolute Auto 800 /uL (0-900); Monocytes Percent Auto 8.1 % (3-14); Neutrophils Absolute Auto 4200 /uL (1500-7000); Neutrophils Percent Auto 41.5 % (50-75); Platelet Count 229 X10^3/uL (150-400); Red Blood Cell Count 3.69 X10^6/uL (4.0-5.2); Red Cell Distribution Width 13.1 % (11.6-14.8); White Blood Cell Count 10.2 X10^3/uL (4.5-11.0)
[2024-10-20 10:01] LABS: Hemoglobin A1C% w Est Avg Glu 6.4 % (4.0-6.0)
[2024-10-20 10:19] LABS: Alanine Aminotransferase 58 IU/L (<35); Albumin 4.6 g/dL (3.5-5.0); Albumin Globulin Ratio 1.5 (1.0-2.8); Alkaline Phosphatase 68 U/L (38-126); Aspartate Aminotransferase 46 IU/L (14-36); BUN Creatinine Ratio 28.6 (6-22); Bilirubin Total 0.7 mg/dL (0.2-1.3); Blood Urea Nitrogen 32 mg/dL (7-17); Calcium 10.5 mg/dL (8.4-10.2); Carbon Dioxide 26 mmol/L (22-32); Chloride 102 mmol/L (98-107); Estimated Glomerular Filt Rate 49 mL/min (>60); Glucose 138 mg/dL (70-99); HEMOLYSIS < 15 (0-50); Potassium 3.8 mmol/L (3.4-5.1); Sodium 139 mmol/L (137-145); Total Protein 7.6 g/dL (6.3-8.2)
[2024-10-20 10:36] LABS: Follicle Stimulating Hormone 24.7 mIU/mL
[2024-10-27 13:11] LABS: Estradiol <5.0 pg/mL (0.0-54.7); Estriol,Serum <0.2 ng/mL (.); Estrone,Serum <6 pg/mL (0-125)
== END ==
PROVIDERS: Family Provider Family Medicine; PCP Family Medicine; Referring Provider Family Medicine; Visit Provider Family Medicine
DX: E27.8 Other specified disorders of adrenal gland (principal); M06.9 Rheumatoid arthritis, unspecified; I10 Essential (primary) hypertension; E78.2 Mixed hyperlipidemia; M54.16 Radiculopathy, lumbar region
CPT/HCPCS: 36415; 80053; 82670; 82677; 82679; 83001; 83036; 85025

== ENCOUNTER → 2024-11-15 08:30 | Outpatient (CLI) | payer MEDICARE, SELFPAY | PROVIDERS: PCP Family Medicine; Visit Provider Registered Nurse | DX: R30.0 Dysuria (principal) | CPT/HCPCS: 87086 ==

== ENCOUNTER → 2024-11-18 09:00 | Outpatient (CLI) | payer MEDICARE, SELFPAY | PROVIDERS: PCP Family Medicine; Visit Provider Chiropractor | DX: R30.0 Dysuria (principal) | CPT/HCPCS: 87077; 87086; 87186 ==

== ENCOUNTER → 2024-11-24 08:52 | Outpatient (CLI) | payer MEDICARE, SELFPAY ==
--- NOTE | 2024-11-24 08:53 | DI.CT.S_ITS ---
PROCEDURE: CT CHEST WO CON INDICATIONS: cough, shortness of breath TECHNIQUE: Noncontrast 5 mm thick sections acquired from the pulmonary apices to the posterior costophrenic angles. 1 mm lung window, 5 mm thick coronal and sagittal and 7 mm axial MIP reformats were then acquired. For radiation dose reduction, the following was used: automated exposure control, adjustment of mA and/or kV according to patient size. COMPARISON: None. FINDINGS: Image quality: Diagnostic. Lower Neck: No enlarged lymph nodes. Thyroid: No thyroid nodules which require sonographic follow up, per consensus guidelines. Axillae: No enlarged lymph nodes. Chest Wall: Unremarkable. Bones: Posterior surgical fusion of the thoracolumbar spine, partially visualized. Lungs and Pleura: No pneumothorax or pleural effusions. A few tree-in-bud nodules in the right lower lobe. Central bronchial thickening with a few regions of mucous impaction. Heart: Heart size is normal. No pericardial effusion. Thoracic Vessels: The aorta and pulmonary arteries demonstrate normal size. Mediastinum and Felicia: No enlarged lymph nodes. Esophagus: No wall thickening. No hiatal hernia. Upper Abdomen: Benign 1.5 centimeter left adrenal adenoma based on Hounsfield units criteria (-9 Hounsfield unit). Hepatic steatosis. IMPRESSION: Mild central bronchial thickening with a small region of tree-in-bud nodules in the right lower lobe. Findings are consistent with infectious/inflammatory bronchiolitis/bronchitis. Dictated by: Jonah Miller M.D. on 11/24/2024 at 9:12 Approved by: Jonah Miller M.D. on 11/24/2024 at 9:15
[2024-11-24 10:22] LABS: Appearance Urine UA CLEAR; Bilirubin Urine UA NEGATIVE (NEGATIVE); Color Urine UA YELLOW; Glucose Urine UA NEGATIVE (Negative); Ketones Urine UA TRACE (NEGATIVE); Leukocyte Esterase Urine UA NEGATIVE (NEGATIVE); Nitrite Urine UA NEGATIVE (Negative); Occult Blood Urine UA NEGATIVE (Negative); Protein Urine UA TRACE (Negative); Specific Gravity Urine UA >=1.030 (1.000-1.035); Urobilinogen Urine UA 0.2 E.U./dL (0.2)
[2024-11-24 10:25] LABS: Hemoglobin A1C% w Est Avg Glu 6.6 % (4.0-6.0)
[2024-11-24 10:26] LABS: pH Urine UA 5.5 (4.5-8.0)
[2024-11-24 10:27] LABS: Culture Indicated Urine Cult Not Indicated
[2024-11-24 10:36] LABS: Alanine Aminotransferase 40 IU/L (<35); Albumin 4.3 g/dL (3.5-5.0); Albumin Globulin Ratio 1.5 (1.0-2.8); Alkaline Phosphatase 69 U/L (38-126); Blood Urea Nitrogen 23 mg/dL (7-17); Calcium 9.5 mg/dL (8.4-10.2); Carbon Dioxide 19 mmol/L (22-32); Chloride 107 mmol/L (98-107); Estimated Glomerular Filt Rate > 60 mL/min (>60); Globulin 2.9 g/dL (1.7-4.1); Glucose 156 mg/dL (70-99); HEMOLYSIS < 15 (0-50); Potassium 3.7 mmol/L (3.4-5.1); Sodium 139 mmol/L (137-145); Total Protein 7.2 g/dL (6.3-8.2)
[2024-11-24 10:45] LABS: NT-proBNP (BNP-Adult 18+) 69 pg/mL (<450)
[2024-11-26 10:12] LABS: Calcium 9.5 mg/dL (8.7-10.3); Parathyroid Hormone, Intact 31 pg/mL (15-65)
[2024-11-27 11:19] LABS: Estriol,Serum <0.2 ng/mL (.); Estrone,Serum 144 pg/mL (0-125)
== END ==
PROVIDERS: PCP Family Medicine; Referring Provider Family Medicine; Visit Provider Family Medicine
DX: Z00.00 Encounter for general adult medical examination without abnormal findings (principal); R91.8 Other nonspecific abnormal finding of lung field; D35.02 Benign neoplasm of left adrenal gland; R05.9 Cough, unspecified; R07.89 Other chest pain; N30.00 Acute cystitis without hematuria; I10 Essential (primary) hypertension; E27.8 Other specified disorders of adrenal gland; R79.89 Other specified abnormal findings of blood chemistry; E78.2 Mixed hyperlipidemia; M54.16 Radiculopathy, lumbar region; M06.9 Rheumatoid arthritis, unspecified; K76.0 Fatty (change of) liver, not elsewhere classified; Z98.1 Arthrodesis status
CPT/HCPCS: 36415; 71250; 80053; 81001; 82310; 82670; 82677; 82679; 83036; 83880; 83970

== ENCOUNTER → 2025-01-23 12:22 | Outpatient (CLI) | payer MEDICARE, SELFPAY | PROVIDERS: PCP Family Medicine; Referring Provider Internal Medicine Critical Care Medicine; Visit Provider Internal Medicine Critical Care Medicine | DX: J42 Unspecified chronic bronchitis (principal) | CPT/HCPCS: 87070; 87205 ==

== ENCOUNTER → 2025-02-07 14:18 | Outpatient (CLI) | payer MEDICARE, SELFPAY ==
--- NOTE | 2025-02-07 14:20 | DI.CT.S_ITS ---
PROCEDURE: CT CHEST WO CON INDICATIONS: H/o multiple pulmonary nodules, cough, eval for change TECHNIQUE: Noncontrast 5 mm thick sections acquired from the pulmonary apices to the posterior costophrenic angles. 1 mm lung window, 5 mm thick coronal and sagittal and 7 mm axial MIP reformats were then acquired. For radiation dose reduction, the following was used: automated exposure control, adjustment of mA and/or kV according to patient size. COMPARISON: [facility], CT, CT CHEST WO [facility], 11/24/2024, 8:56. FINDINGS: Image quality: Diagnostic Lungs and pleura: No suspicious solitary pulmonary nodule identified. No airspace consolidation or pleural effusion. Previous centrilobular nodules in the right costophrenic angle appears similar Other small nodules are also similar for example in the right image , calcified granulomas are also suspected. Mediastinum, heart, and esophagus: There are mildly enlarged mediastinal lymph nodes, overall similar to prior for example pretracheal node measures 1 cm short axis. Subcarinal no appears partially calcified. Normal heart size. No significant abnormality of the esophagus on noncontrast CT. Chest wall and thyroid: Unremarkable Upper abdomen: Suspect hepatic steatosis partially seen. Cholecystectomy clips. Left adrenal adenoma partially seen. Bones: Thoracolumbar posterior fusion construct partially seen. There are degenerative osseous changes. IMPRESSION: Overall stable small nodules and granulomas in the lungs. No high suspicion solitary nodule identified. If the patient is considered high risk for pulmonary malignancy, yearly chest CT may be obtained at clinical discretion. Borderline enlarged mediastinal lymph nodes, indeterminate, possibly reactive, also stable. Other findings above. Dictated by: Nicolas Nelson M.D. on 02/07/2025 at 15:09 Approved by: Nicolas Nelson M.D. on 02/07/2025 at 15:14
== END ==
PROVIDERS: PCP Family Medicine; Referring Provider Family Medicine; Visit Provider Internal Medicine Critical Care Medicine
DX: R91.8 Other nonspecific abnormal finding of lung field (principal); R59.0 Localized enlarged lymph nodes
CPT/HCPCS: 71250

== ENCOUNTER → 2025-02-11 16:05 | Outpatient (CLI) | payer MEDICARE, SELFPAY | LOC: RESP 16:06 | PROVIDERS: PCP Family Medicine; Referring Provider Family Medicine; Visit Provider Internal Medicine Critical Care Medicine | DX: J41.8 Mixed simple and mucopurulent chronic bronchitis (principal); R94.2 Abnormal results of pulmonary function studies | CPT/HCPCS: 94010; 94726; 94729 ==